=== PATIENT | female | born 1975 | race American Indian/Alaskan Native ===

== ENCOUNTER 2016-10-19 16:17 | Emergency (ER) | payer SELFPAY ==
--- NOTE | 2016-10-19 17:15 | Cat Scan Report ---
FINAL REPORT EXAM: CT HEAD/BRAIN WO CON HISTORY: fall TECHNIQUE: CT examination of the head without IV contrast PRIORS: None. FINDINGS: No acute air-fluid level visualized in the included air-filled sinuses. Bone windows demonstrate no acute fracture. The brain is without mass, mass effect, hemorrhage, or acute infarct. There is no extra-axial intracranial bleed, brain bleed, or midline shift. The ventricles and sulci are age-appropriate. IMPRESSION: No acute CVA, intracranial bleed, or brain mass
--- NOTE | 2016-10-19 18:33 | XRay Report ---
FINAL REPORT EXAM: XR HIP 2-3V LT HISTORY: fall/pain in left hip TECHNIQUE: One view of the pelvis 2 views of the left hip PRIORS: None. FINDINGS: No definite hip joint space narrowing. Small nonspecific ossicle is noted adjacent to the lateral margin of the left acetabulum. It is smoothly marginated, sclerotic, and appears chronic. This may be from degenerative change or old trauma. It may also be developmental variation. There is no definite radiographic evidence of acute fracture or dislocation. No evidence of osseous lesion. IMPRESSION: No definite radiographic evidence of acute skeletal pathology in the pelvis and left hip
--- NOTE | 2016-10-19 18:35 | XRay Report ---
FINAL REPORT EXAM: XR RIBS UNILAT 2V LT HISTORY: fall/pain in left posterior lower ribs TECHNIQUE: Frontal and oblique views of the left ribs PRIORS: None. FINDINGS: There is no evidence of acute displaced rib fracture. The ribs are partly obscured by superimposed anatomy. There is no pneumothorax, pulmonary consolidation to suggest contusion, or pleural effusion in the visualized chest. IMPRESSION: No acute skeletal pathology
[2016-10-19] MEDS ORDERED: FLEXERIL PO ONE (20:10)
[2016-10-19] MEDS ORDERED: TORADOL IM ONE (20:10)
[2016-10-19] MEDS ORDERED: TORADOL ONE (20:20)
--- NOTE | 2016-10-19 20:21 | Emergency Department Report ---
HPI - General Chief Complaint: Fall Time Seen by Provider: 10/19/16 19:53 - HPI HPI: 41 year-old female with medical history of present ed complaining of falling down 20 steps earlier today. patient states she has a history of bed knee and her right knee give out so she fell and hit her left hip back of the head and left rib. patient denies any loss of consciousness after incident. patient was able to get up after the incident. She states her left hip and rib hurts since the incident. Denies dizziness, blurry vision, headache ED Past Medical Hx - Past Medical History Hx Headaches / Migraines: Yes Additional medical history: Endometriosis, lower back pain - Surgical History Additional Surgical History: Laproscopic surgery for endometriosis, tubal ligation, left ring finger - Social History Smoking Status: Current Every Day Smoker Substance Use Type: Alcohol - Medications Home Medications: Home Medications Medication Instructions Recorded Confirmed Last Taken Type Ibuprofen [Motrin 800 MG tab] 800 mg PO Q8H #21 tablet 06/21/14 Unknown Rx HYDROcodone/APAP 10-325 [[place] 1 each PO Q6HR PRN #20 tablet 12/27/14 Unknown Rx 10/325] Acetaminophen/Codeine [Tylenol 1 tab PO Q6H PRN #16 tab 03/30/15 Unknown Rx /Codeine # 3 tab] Gentamicin 0.3% Ophth Soln 2 drops OP Q4H #1 bottle 03/30/15 Unknown Rx Sulfamethoxazole/Trimethoprim 1 each PO BID #20 tablet 03/30/15 Unknown Rx [Bactrim DS TAB] Cyclobenzaprine [Flexeril 10 MG 10 mg PO QHS PRN #24 tablet 10/19/16 Unknown Rx TAB] Ibuprofen [Motrin 800 MG tab] 800 mg PO Q8HR PRN #30 tablet 10/19/16 Unknown Rx ED Review of Systems ROS: Stated complaint: FALL/LT SIDE AND BACK PAIN Other details as noted in HPI Constitutional: denies: chills, fever Eyes: denies: eye pain, eye discharge, vision change ENT: denies: ear pain, throat pain Respiratory: denies: cough, shortness of breath, wheezing Cardiovascular: denies: chest pain, palpitations Endocrine: no symptoms reported Gastrointestinal: denies: abdominal pain, nausea, diarrhea Genitourinary: denies: urgency, dysuria, discharge Musculoskeletal: denies: back pain, joint swelling, arthralgia Skin: denies: rash, lesions Neurological: denies: headache, weakness, paresthesias Psychiatric: denies: anxiety, depression Hematological/Lymphatic: denies: easy bleeding, easy bruising Physical Exam - Physical Exam Vital Signs: Vital Signs 10/19/16 16:28 Temperature 98.9 F Pulse Rate 109 H Respiratory 18 Rate Blood Pressure 140/97 O2 Sat by Pulse 98 Oximetry Physical Exam: GENERAL: Alert and oriented x3, no apparent distress, Normal Gait, atraumatic. HEAD: Head is normocephalic and a-traumatic. EYES: Extra ocular muscles are intact. Pupils are equal, round, and reactive to light and accommodation. EARS: symetrical, atraumatic, non tender, ear canal clear and moderate cerumen, tympanic membrance non inflamed. gross auditory nml bilaterally. NOSE: Nose symetrical, Nontender,Nares appeared normal. MOUTH:Mouth is well hydrated and without lesions. Tonsils nonerythematous or swollen, Uvula midline, Tongue not elevated. Mucous membranes are moist. Posterior pharynx clear, no exudate or lesions. Patent airways. NECK: Supple. Non edematous, No carotid bruits. No lymphadenopathy or thyromegaly. No C-spine tenderness LUNGS: Symetrical with respiration, No wheezing, no rales or crackles, CTAB. HEART: S1, S2 present, regular rate and rhythm without murmur, no rubs, no gallops. Non tender to palpation ABDOMEN: No organomegaly was noted,Positive bowel sounds, soft, and non- distended. . Nontender to palpation on all Quadrants, NO CVA tenderness. BACK: Full range of motion, no spinal tenderness, nontender to palpation. EXTREMITIES/MUSCULOSKELETAL: No cyanosis, clubbing, rash, lesions or edema. Full ROM bilaterally. UE/LE Pulses 2+ bilaterally. LE and UE 5+ strength bilaterally, straight leg raise negative bilaterally NEUROLOGIC: The patient is cooperative with no focal neurologic deficits. Cranial nerves II through XII are grossly intact. Normal speech. PSYCHIATRIC: Mood is congruent with affect, denies suicidal or homicidal ideations. SKIN: Warm and dry, No lesions, No ulceration or induration present. ED Course Vital Signs 10/19/16 16:28 Temperature 98.9 F Pulse Rate 109 H Respiratory 18 Rate Blood Pressure 140/97 O2 Sat by Pulse 98 Oximetry ED Medical Decision Making - Radiology Data Radiology results: report reviewed, image reviewed FINAL REPORT EXAM: CT HEAD/BRAIN WO CON HISTORY: fall TECHNIQUE: CT examination of the head without IV contrast PRIORS: None. FINDINGS: No acute air-fluid level visualized in the included air-filled sinuses. Bone windows demonstrate no acute fracture. The brain is without mass, mass effect, hemorrhage, or acute infarct. There is no extra-axial intracranial bleed, brain bleed, or midline shift. The ventricles and sulci are age-appropriate. IMPRESSION: No acute CVA, intracranial bleed, or brain mass FINAL REPORT EXAM: XR HIP 2-3V LT HISTORY: fall/pain in left hip TECHNIQUE: One view of the pelvis 2 views of the left hip PRIORS: None. FINDINGS: No definite hip joint space narrowing. Small nonspecific ossicle is noted adjacent to the lateral margin of the left acetabulum. It is smoothly marginated, sclerotic, and appears chronic. This may be from degenerative change or old trauma. It may also be developmental variation. There is no definite radiographic evidence of acute fracture or dislocation. No evidence of osseous lesion. IMPRESSION: No definite radiographic evidence of acute skeletal pathology in the pelvis and left hip Transcribed By: CAMERON Dictated By: KILO MONSALVE MD Electronically Authenticated By: KILO MONSALVE MD Signed Date/Time: 10/19/16 183 - Medical Decision Making 41-year-old female presents to ED with myalgia is status post fall down some steps ED course: Patient received Toradol and Flexeril in ED. CT scan of the head, hip x-ray and rib detail x-ray shows no abnormal findings Discussed this with the patient. Vital signs are normal patient is in no acute distress Discussed with patient follow-up with primary care physician. Discussed the patient and take medications as prescribed. Patient has no neurological deficit. Patient is alert and oriented 3 and understands all instructions given. Discussed drowsiness effect of Flexeril makes her drowsy and not to operate machinery while taking flexeril Critical care attestation.: If time is entered above; I have spent that time in minutes in the direct care of this critically ill patient, excluding procedure time. ED Disposition Clinical Impression: Fall (on) (from) other stairs and steps, initial encounter, Myalgia Disposition: DC-01 TO HOME OR SELFCARE Is pt being admited?: No Does the pt Need Aspirin: No Condition: Stable Instructions: Trigger Point Pain (ED), Musculoskeletal Pain (ED), Heat Pack Application (ED) Prescriptions: Cyclobenzaprine [Flexeril 10 MG TAB] 10 mg PO QHS PRN #24 tablet PRN Reason: Muscle Spasm Ibuprofen [Motrin 800 MG tab] 800 mg PO Q8HR PRN #30 tablet PRN Reason: Pain Referrals: PRIMARY CARE, [Primary Care Provider] - 3-5 Days [facility] [Outside] - 3-5 Days [facility] [Outside] - 3-5 Days [facility] [Outside] - 3-5 Days Forms: Accompanied Note, Work/School Release Form(ED) Time of Disposition: 20:36
[2016-10-19 20:56] VITALS: BP 158/96
== END 2016-10-19 20:56 | disposition home or self-care (01) ==
LOC: ED 16:17
DX: M79.1 Myalgia (principal); M25.552 Pain in left hip; R07.9 Chest pain, unspecified; G43.909 Migraine, unspecified, not intractable, without status migrainosus; N80.9 Endometriosis, unspecified; F17.200 Nicotine dependence, unspecified, uncomplicated; Z98.51 Tubal ligation status; W10.9XXA Fall (on) (from) unspecified stairs and steps, initial encounter; Y93.9 Activity, unspecified; Y99.9 Unspecified external cause status; Y92.89 Other specified places as the place of occurrence of the external cause
CPT/HCPCS: 70450; 71100; 73502; 96372; 99284; J1885

== ENCOUNTER 2016-10-21 20:56 | Emergency (ER) | payer SELFPAY | END 2016-10-21 21:15 | disposition left against medical advice (07) | LOC: ED 20:56 | DX: R07.81 Pleurodynia (principal); Z53.21 Procedure and treatment not carried out due to patient leaving prior to being seen by health care provider ==

== ENCOUNTER 2017-03-22 07:15 | Emergency (ER) | payer OTHER ==
[2017-03-22 08:03] LABS: Basophils % (Auto) 0.6 % (0.0-1.8); Eosinophils # (Auto) 0.1 K/mm3 (0.0-0.4); Eosinophils % (Auto) 0.8 % (0.0-4.3); Hematocrit 44.4 % (30.3-42.9); Lymphocytes # (Auto) 2.4 K/mm3 (1.2-5.4); Lymphocytes % (Auto) 33.8 % (13.4-35.0); Mean Corpuscular HGB Conc 34 % (30-34); Mean Corpuscular Hemoglobin 31 pg (28-32); Mean Corpuscular Volume 93 fl (79-97); Monocytes # (Auto) 0.4 K/mm3 (0.0-0.8); Monocytes % (Auto) 5.5 % (0.0-7.3); Platelet Count 332 K/mm3 (140-440); Red Blood Count 4.79 M/mm3 (3.65-5.03); Red Cell Distribution Width 13.6 % (13.2-15.2)
[2017-03-22 08:07] LABS: BUN/Creatinine Ratio 16; Blood Urea Nitrogen 14 mg/dL (7-17); Calcium 9.2 mg/dL (8.4-10.2); Hemolysis Index 32
[2017-03-22] MEDS ORDERED: LOPRESSOR IV ONE (09:57)
--- NOTE | 2017-03-22 10:10 | Emergency Department Report ---
HPI - General Chief Complaint: High BP Time Seen by Provider: 03/22/17 09:25 - HPI HPI: This is a 42-year-old female presents to the emergency department with multiple complaints. She has been getting evaluated for tendinitis and each time she goes to the orthopedist she appears to have increasing blood pressures. Today she came directly from the orthopedist office secondary to hypertension. Over the past few weeks, the patient complains of "feeling funny" which includes some numbness and/or tingling to the left side of the face, left side of the tongue. She has a tightness to the left side of her neck and shoulder. She also has some midsternal chest tightness. She denies any shortness of breath but the chest tightness does worsen with respirations. She denies any nausea, vomiting, fever, back pain or diaphoresis. She denies any slurred speech or vision change but does have a headache. She does have a history of migraines. She has not taken anything for any of her symptoms prior to presentation. She is a tobacco smoker and says that one pack lasts about one week. She denies any illicit drug use. She does have a family history that includes a brother passing away from a heart attack at 47 years of age. No recent travel or sick contacts at home. ED Past Medical Hx - Past Medical History Previous Medical History?: Yes Hx Headaches / Migraines: Yes Additional medical history: Endometriosis, lower back pain - Surgical History Past Surgical History?: Yes Additional Surgical History: Laproscopic surgery for endometriosis, tubal ligation, left ring finger - Social History Smoking Status: Light Tobacco Smoker - Medications Home Medications: Home Medications Medication Instructions Recorded Confirmed Last Taken Type Ibuprofen [Motrin 800 MG tab] 800 mg PO Q8H #21 tablet 06/21/14 Unknown Rx HYDROcodone/APAP 10-325 [[place] 1 each PO Q6HR PRN #20 tablet 12/27/14 Unknown Rx 10/325] Acetaminophen/Codeine [Tylenol 1 tab PO Q6H PRN #16 tab 03/30/15 Unknown Rx /Codeine # 3 tab] Gentamicin 0.3% Ophth Soln 2 drops OP Q4H #1 bottle 03/30/15 Unknown Rx Sulfamethoxazole/Trimethoprim 1 each PO BID #20 tablet 03/30/15 Unknown Rx [Bactrim DS TAB] Cyclobenzaprine [Flexeril 10 MG 10 mg PO QHS PRN #24 tablet 10/19/16 Unknown Rx TAB] Ibuprofen [Motrin 800 MG tab] 800 mg PO Q8HR PRN #30 tablet 10/19/16 Unknown Rx amLODIPine [Norvasc] 10 mg PO DAILY #15 tab 03/22/17 Unknown Rx ED Review of Systems ROS: Stated complaint: HTN Other details as noted in HPI Comment: All other systems reviewed and negative Constitutional: denies: chills, fever Eyes: denies: eye pain, eye discharge, vision change ENT: denies: ear pain, throat pain Respiratory: denies: cough, shortness of breath, wheezing Cardiovascular: chest pain, palpitations. denies: edema Gastrointestinal: denies: abdominal pain, nausea, diarrhea Genitourinary: denies: urgency, dysuria, discharge Musculoskeletal: denies: back pain, joint swelling Skin: denies: rash, lesions Neurological: headache, numbness, paresthesias Physical Exam - Physical Exam Vital Signs: Vital Signs 03/22/17 07:23 Temperature 97.6 F Pulse Rate 85 Respiratory 18 Rate Blood Pressure 160/107 O2 Sat by Pulse 100 Oximetry Physical Exam: GENERAL: The patient is well-developed well-nourished. HENT: Normocephalic. Atraumatic. Patient has moist mucous membranes. EYES: Medial and lateral extraocular motions are intact. When the patient tries to follow vertically, the right eye go superiorly and the left eye goes laterally. If the patient is focusing too close to her face, she has trouble with all extraocular motion. Pupils equal reactive to light bilaterally. No nystagmus. NECK: Supple. Trachea is midline. CHEST/LUNGS: Clear to auscultation. There is no respiratory distress noted. HEART/CARDIOVASCULAR: Regular. There is no tachycardia. There is no murmur. ABDOMEN: Abdomen is soft, nontender. Patient has normal bowel sounds. There is no abdominal distention. SKIN: There is no rash. There is no edema. There is no diaphoresis. NEURO: The patient is awake, alert, and oriented. The patient is cooperative. She has normal speech. No pronator drift. No dysmetria. She has subjective decreased sensation to the left side of the face, left arm and left leg. MUSCULOSKELETAL: There is no tenderness or deformity. There is no limitation range of motion. There is no evidence of acute injury. ED Course Vital Signs 03/22/17 07:23 Temperature 97.6 F Pulse Rate 85 Respiratory 18 Rate Blood Pressure 160/107 O2 Sat by Pulse 100 Oximetry ED Medical Decision Making - Lab Data Result diagrams: 03/22/17 07:32 03/22/17 07:32 - EKG Data -: EKG Interpreted by Me EKG shows normal: sinus rhythm, axis, intervals, QRS complexes, ST-T waves ( early repolarization) Rate: normal - EKG Data When compared to previous EKG there are: previous EKG unavailable Interpretation: other (sinus rhythm, normal axis, early repolarization) - Radiology Data Radiology results: report reviewed, image reviewed interpreted by me: Chest x-ray does not show any acute process. There are no pleural effusions, obvious pneumonia and there is no pneumothorax. CT HEAD WITHOUT CONTRAST: HISTORY: Headache, left-sided numbness. TECHNIQUE: Sequential 2.5mm CT images. COMPARISON: 10/19/16. FINDINGS: Cerebral Parenchyma: Within normal limits. Cerebellum: Within normal limits. Brainstem: Within normal limits. Ventricles: Normal. Sella: Normal. Extra-axial spaces: Normal. Basal Cisterns: Normal. Intracranial Hemorrhage: None. Midline Shift: None. Calvarium: Normal. Sinuses: Normal. Mastoid Air Cells: Normal. Visualized Orbits: Normal. IMPRESSION: Cranial CT scan within normal limits. Transcribed By: TTR Dictated By: KWAKU HCO JR, MD Electronically Authenticated By: KWAKU CHO JR, MD Signed Date/Time: 03/22/17 1050 - Medical Decision Making Patient presents with hypertensive issues, some chest tightness and some left- sided facial and body numbness/paresthesias. She also appears to have some asymmetrical extraocular motion. CT of the head does not show any bleed, shift , mass or any acute process. Chest x-ray does not show any acute process. EKG does not show any ST elevation [place], ischemia or dysrhythmia. Patient does have a few risk factors for coronary artery disease including hypertension, tobacco abuse and family history. For these reasons, as well as the sensory deficits, the patient will be admitted to the hospital for further evaluation and treatment. - Differential Diagnosis [place], PE, CVA, TIA, malignancy, MS Critical Care Time: No Critical care attestation.: If time is entered above; I have spent that time in minutes in the direct care of this critically ill patient, excluding procedure time. ED Disposition Clinical Impression: Left sided numbness Hypertension Qualifiers: Hypertension type: essential hypertension Qualified Code(s): I10 - Essential ( primary) hypertension Chest pain Qualifiers: Chest pain type: unspecified Qualified Code(s): R07.9 - Chest pain, unspecified Headache Qualifiers: Headache type: unspecified Headache chronicity pattern: unspecified pattern Intractability: not intractable Qualified Code(s): R51 - Headache Disposition: OP ADMIT IP TO THIS HOSP Is pt being admited?: Yes Condition: Stable Instructions: Hypertension (ED), Chest Pain (ED) Prescriptions: amLODIPine [Norvasc] 10 mg PO DAILY #15 tab Referrals: PRIMARY CARE, [Primary Care Provider] - 3-5 Days Time of Disposition: 14:34
[2017-03-22 10:22] LABS: INR 1.03 (0.87-1.13)
[2017-03-22 10:23] LABS: Partial Thromboplastin Time 26.2 Sec. (24.2-36.6)
[2017-03-22 10:36] LABS: Alanine Aminotransferase 13 units/L (7-56); Albumin 3.8 g/dL (3.9-5)
--- NOTE | 2017-03-22 10:40 | XRay Report ---
ROUTINE CHEST, TWO VIEWS: HISTORY: chest pain. The trachea, heart, mediastinal contour, lung javed and bony thorax are unremarkable. IMPRESSION: Unremarkable chest x-ray.
[2017-03-22 10:42] LABS: Bilirubin,Direct < 0.2 mg/dL (0-0.2)
--- NOTE | 2017-03-22 10:56 | Cat Scan Report ---
CT HEAD WITHOUT CONTRAST: HISTORY: Headache, left-sided numbness. TECHNIQUE: Sequential 2.5mm CT images. COMPARISON: 10/19/16. FINDINGS: Cerebral Parenchyma: Within normal limits. Cerebellum: Within normal limits. Brainstem: Within normal limits. Ventricles: Normal. Sella: Normal. Extra-axial spaces: Normal. Basal Cisterns: Normal. Intracranial Hemorrhage: None. Midline Shift: None. Calvarium: Normal. Sinuses: Normal. Mastoid Air Cells: Normal. Visualized Orbits: Normal. IMPRESSION: Cranial CT scan within normal limits.
--- NOTE | 2017-03-22 12:08 | History and Physical Report ---
History of Present Illness Chief complaint: My blood pressure is high History of present illness: 42 YO Female with Nicotine Dependence,Migraine LOMBARDO, Endometriosis presents to ED for evaluation. Pt states that she was told by her orthopedist that she appears to have increasing blood pressures and is suspected to have hypertension. Pt acknowledeges tightness in her chest, but Pt denies previous diagnosis of hypertension, or prior prescription for antihypertensive medication. Pt denies fever, chills, CP, palpitatons, LOMBARDO, NVD, Syncope, productive cough, or recent ill contacts. Pt seen and evaluated in ED and underwent serial cardiac enzymes, ekg, d dimer, which were unremarkable and not indicative of acute ischamia, CT head was negative for acute findings. Pt medically optimized and back to usual state of health. Pt prescribed antihypertensive medication and instructed to f/u pcp with 5 days with blood pressure log 3xdaily. Past History Past Medical History: other (migraine headache, endometriosis) Past Surgical History: Other (tubal ligation) Social history: , smoking Family history: CAD Medications and Allergies Allergies Allergy/AdvReac Type Severity Reaction Status Date / Time aspirin Allergy Nausea Verified 10/21/16 21:00 dial soap Allergy Hives Uncoded 09/25/14 12:12 Home Medications Medication Instructions Recorded Confirmed Last Taken Type Ibuprofen [Motrin 800 MG tab] 800 mg PO Q8H #21 tablet 06/21/14 Unknown Rx HYDROcodone/APAP 10-325 [[place] 1 each PO Q6HR PRN #20 tablet 12/27/14 Unknown Rx 10/325] Acetaminophen/Codeine [Tylenol 1 tab PO Q6H PRN #16 tab 03/30/15 Unknown Rx /Codeine # 3 tab] Gentamicin 0.3% Ophth Soln 2 drops OP Q4H #1 bottle 03/30/15 Unknown Rx Sulfamethoxazole/Trimethoprim 1 each PO BID #20 tablet 03/30/15 Unknown Rx [Bactrim DS TAB] Cyclobenzaprine [Flexeril 10 MG 10 mg PO QHS PRN #24 tablet 10/19/16 Unknown Rx TAB] Ibuprofen [Motrin 800 MG tab] 800 mg PO Q8HR PRN #30 tablet 10/19/16 Unknown Rx Review of Systems Constitutional: no weight loss, no weight gain, no fever, no chills Ears, nose, mouth and throat: no ear pain, no ear discharge, no tinnitis, no decreased hearing Breasts: no change in shape, no swelling, no mass Cardiovascular: no chest pain, no orthopnea, no palpitations, no rapid/ irregular heart beat Respiratory: no cough, no cough with sputum, no excessive sputum, no hemoptysis Gastrointestinal: no nausea, no vomiting, no diarrhea, no constipation Genitourinary Female: no pelvic pain, no flank pain, no menorrhagia, no dysuria Rectal: no pain, no incontinence, no bleeding Musculoskeletal: no neck stiffness, no neck pain, no shooting arm pain, no arm numbness/tingling, no low back pain Integumentary: no rash, no pruritis, no redness, no sores, no wounds Neurological: no paralysis, no weakness, no parathesias, no numbness, no tingling Psychiatric: no memory loss, no change in sleep habits, no sleep disturbances, no insomnia, no hypersomnia Endocrine: no cold intolerance, no heat intolerance, no polyphagia, no excessive thirst, no polydipsia Hematologic/Lymphatic: no easy bruising, no easy bleeding, no lymphadenopathy, no lymphedema Allergic/Immunologic: no urticaria, no allergic rhinitis, no wheezing, no persistent infections, no anaphylaxis, no angioedema Exam - Constitutional Vitals: Temp Pulse Resp BP Pulse Ox 97.6 F 72 14 152/106 100 03/22/17 07:23 03/22/17 11:30 03/22/17 11:30 03/22/17 11:30 03/22/17 11:30 General appearance: Present: no acute distress, well-nourished - EENT Eyes: Present: PERRL ENT: hearing intact, clear oral mucosa - Neck Neck: Present: supple, normal ROM - Respiratory Respiratory effort: normal Respiratory: bilateral: CTA - Cardiovascular Heart Sounds: Present: S1 & S2. Absent: rub, click - Extremities Extremities: pulses symmetrical, No edema Peripheral Pulses: within normal limits - Abdominal General gastrointestinal: Present: soft, non-tender, non-distended, normal bowel sounds Female genitourinary: Present: normal - Integumentary Integumentary: Present: clear, warm, dry - Musculoskeletal Musculoskeletal: gait normal, strength equal bilaterally - Psychiatric Psychiatric: appropriate mood/affect, intact judgment & insight - Neurologic Neurologic: CNII-XII intact, moves all extremities Results - Labs CBC & Chem 7: 03/22/17 07:32 03/22/17 07:32 Labs: Abnormal lab results 03/22/17 03/22/17 03/22/17 Range/Units 07:32 07:32 10:01 Hgb 15.0 H (10.1-14.3) gm/dl Hct 44.4 H (30.3-42.9) % Glucose 107 H (65-100) mg/dL Albumin 3.8 L (3.9-5) g/dL Assessment and Plan - Patient Problems (1) Hypertension Current Visit: Yes Status: Acute Qualifiers: Hypertension type: essential hypertension Qualified Code(s): I10 - Essential (primary) hypertension Plan to address problem: Prescription written for amlodipine. Pt instructed to f/u pcp as directed with BP log 3x daily.
[2017-03-22] MEDS ORDERED: NORVASC PO ONE (12:34)
[2017-03-22 13:14] LABS: Bilirubin,Urine NEG (Negative); Blood,Urine LG (Negative); Color,Urine Yellow (Yellow); Mucus,Urine FEW /HPF; Nitrite,Urine NEG (Negative); Protein,Urine <15 mg/dL mg/dL (Negative); Urobilinogen,Urine < 2.0 mg/dL (<2.0)
[2017-03-22 13:22] LABS: Amphetamine Screen,Urine PRESUMPTIVE NEGATIVE; Benzodiazepines Screen,Urine PRESUMPTIVE NEGATIVE; Cannabinoid Screen,Urine PRESUMPTIVE NEGATIVE; Cocaine Screen,Urine PRESUMPTIVE NEGATIVE; Methadone Screen,Urine PRESUMPTIVE NEGATIVE; Opiate Screen,Urine PRESUMPTIVE NEGATIVE
[2017-03-22 14:21] VITALS: BP 152/77
== END 2017-03-22 15:40 | disposition admitted as inpatient to this hospital (09) ==
LOC: ED 07:15
DX: I10 Essential (primary) hypertension (principal); R20.0 Anesthesia of skin; G43.909 Migraine, unspecified, not intractable, without status migrainosus; F17.200 Nicotine dependence, unspecified, uncomplicated; Z88.6 Allergy status to analgesic agent; Z91.09 Other allergy status, other than to drugs and biological substances; Z79.899 Other long term (current) drug therapy
CPT/HCPCS: 36415; 70450; 71046; 80048; 80074; 80307; 81001; 84484; 84703; 85025; 85379; 85610; 85730; 93005; 93010; 96374

== ENCOUNTER 2017-10-14 05:40 | Emergency (ER) | payer SELFPAY ==
--- NOTE | 2017-10-14 07:52 | XRay Report ---
LEFT KNEE, 3 views: History: Pain. The bony architecture is intact without evidence of fracture or dislocation. A small joint effusion extends to the suprapatellar bursa on the lateral image. IMPRESSION: Small joint effusion. No osseous abnormality appreciated.
--- NOTE | 2017-10-14 08:09 | Emergency Department Report ---
ED Lower Extremity HPI - General Chief Complaint: Extremity Injury, Lower Time Seen by Provider: 10/14/17 08:08 Source: patient Mode of arrival: Ambulatory Limitations: No Limitations - History of Present Illness Initial Comments: This is 42-year-old female who reports that she got up this morning around 2:30 and injured her knee heard a pop and reports swollen. She came to the emergency room with crutches. She said the same thing happened 6 months ago. She has blood pressure of 165/107 and she has not taken her blood pressure medication today. She says she is on amlodipine. Pain to10/10 and achy. It is worse with movement and better with rest. No medication taken prior to coming to the emergency room MD Complaint: knee injury -: This morning Injury: Knee: Left (pain and swelling after injury) Type of Injury: eversion Place: home Severity: severe Severity scale (0 -10): 10 Worsens With: movement, palpation Context: walking Associated Symptoms: snap/pop sensation, swelling, able to partially bear weight. denies: numbness, tingling Treatments Prior to Arrival: other (crutches) - Related Data Previous Rx's Medication Instructions Recorded Last Taken Type Ibuprofen [Motrin 800 MG tab] 800 mg PO Q8H #21 tablet 06/21/14 Unknown Rx HYDROcodone/APAP 10-325 [[place] 1 each PO Q6HR PRN #20 tablet 12/27/14 Unknown Rx 10/325] Acetaminophen/Codeine [Tylenol 1 tab PO Q6H PRN #16 tab 03/30/15 Unknown Rx /Codeine # 3 tab] Gentamicin 0.3% Ophth Soln 2 drops OP Q4H #1 bottle 03/30/15 Unknown Rx Sulfamethoxazole/Trimethoprim 1 each PO BID #20 tablet 03/30/15 Unknown Rx [Bactrim DS TAB] Cyclobenzaprine [Flexeril 10 MG 10 mg PO QHS PRN #24 tablet 10/19/16 Unknown Rx TAB] Ibuprofen [Motrin 800 MG tab] 800 mg PO Q8HR PRN #30 tablet 10/19/16 Unknown Rx amLODIPine [Norvasc] 10 mg PO DAILY #15 tab 03/22/17 Unknown Rx Ibuprofen [Motrin] 600 mg PO Q8H PRN #12 tablet 10/14/17 Unknown Rx Allergies Allergy/AdvReac Type Severity Reaction Status Date / Time aspirin Allergy Nausea Verified 10/14/17 07:13 dial soap Allergy Hives Uncoded 09/25/14 12:12 ED Review of Systems ROS: Stated complaint: Other details as noted in HPI Constitutional: denies: chills, fever Eyes: denies: eye pain, vision change Respiratory: denies: cough, shortness of breath, SOB with exertion, wheezing Cardiovascular: denies: chest pain, palpitations, edema, syncope Gastrointestinal: denies: abdominal pain, nausea, vomiting, diarrhea Genitourinary: denies: discharge Musculoskeletal: joint swelling, arthralgia. denies: back pain, myalgia Skin: denies: rash, lesions Neurological: abnormal gait. denies: headache, weakness, numbness, paresthesias , vertigo ED Past Medical Hx - Past Medical History Previous Medical History?: Yes Hx Hypertension: Yes Hx Headaches / Migraines: Yes Additional medical history: Endometriosis, lower back pain - Surgical History Past Surgical History?: Yes Additional Surgical History: Laproscopic surgery for endometriosis, tubal ligation, left ring finger - Family History Family history: hypertension - Social History Smoking Status: Current Every Day Smoker Substance Use Type: Alcohol - Medications Home Medications: Home Medications Medication Instructions Recorded Confirmed Last Taken Type Ibuprofen [Motrin 800 MG tab] 800 mg PO Q8H #21 tablet 06/21/14 Unknown Rx HYDROcodone/APAP 10-325 [[place] 1 each PO Q6HR PRN #20 tablet 12/27/14 Unknown Rx 10/325] Acetaminophen/Codeine [Tylenol 1 tab PO Q6H PRN #16 tab 03/30/15 Unknown Rx /Codeine # 3 tab] Gentamicin 0.3% Ophth Soln 2 drops OP Q4H #1 bottle 03/30/15 Unknown Rx Sulfamethoxazole/Trimethoprim 1 each PO BID #20 tablet 03/30/15 Unknown Rx [Bactrim DS TAB] Cyclobenzaprine [Flexeril 10 MG 10 mg PO QHS PRN #24 tablet 10/19/16 Unknown Rx TAB] Ibuprofen [Motrin 800 MG tab] 800 mg PO Q8HR PRN #30 tablet 10/19/16 Unknown Rx amLODIPine [Norvasc] 10 mg PO DAILY #15 tab 03/22/17 Unknown Rx Ibuprofen [Motrin] 600 mg PO Q8H PRN #12 tablet 10/14/17 Unknown Rx ED Physical Exam - General Limitations: No Limitations General appearance: alert, in no apparent distress - Head Head exam: Present: atraumatic, normocephalic, normal inspection - Eye Eye exam: Present: normal appearance, PERRL, EOMI Pupils: Present: normal accommodation - ENT ENT exam: Present: normal exam, normal orophraynx, mucous membranes moist - Neck Neck exam: Present: normal inspection, full ROM. Absent: tenderness, lymphadenopathy - Respiratory Respiratory exam: Present: normal lung sounds bilaterally. Absent: respiratory distress, chest wall tenderness - Cardiovascular Cardiovascular Exam: Present: regular rate, normal rhythm, normal heart sounds. Absent: systolic murmur, diastolic murmur - GI/Abdominal GI/Abdominal exam: Present: soft, normal bowel sounds. Absent: tenderness, organomegaly - Extremities Exam Extremities exam: Present: normal inspection, full ROM, normal capillary refill , other (my extremity physical exam except patient ambulates with crutches). Absent: tenderness, pedal edema, joint swelling, calf tenderness - Expanded Lower Extremity Exam Left Hip exam: Present: normal inspection, full ROM, pelvic stability. Absent: tenderness, swelling, abrasion, laceration, ecchymosis, deformity, crepidus, dislocation, erythema, external rotation, internal rotation, shortening Upper Leg exam: Present: normal inspection, full ROM. Absent: tenderness, swelling, abrasion, laceration, ecchymosis, deformity, crepidus, dislocation, erythema Knee exam: Present: normal inspection, full ROM, tenderness (anterior knee), swelling (anterior knee), effusion (anterior knee), full knee extension (full extension but pain with flexion and extension). Absent: abrasion, laceration, ecchymosis, deformity, crepidus, dislocation, erythema, pain w/ pronation/ supination, posterior draw sign, pain/laxity with valgus, pain/laxity with varus Lower Leg exam: Present: normal inspection, full ROM. Absent: tenderness, swelling, abrasion, laceration, ecchymosis, deformity, crepidus, dislocation, erythema, palpable cord, Shoshana's sign Ankle exam: Present: normal inspection, full ROM. Absent: tenderness, swelling , abrasion, laceration, ecchymosis, deformity, crepidus, dislocation, erythema, anterior draw sign Foot/Toe exam: Present: normal inspection, full ROM. Absent: tenderness, swelling, abrasion, laceration, ecchymosis, deformity, crepidus, dislocation, erythema, amputation, puncture wound, foreign body, calcaneal tenderness, tenderness at base of 5th metatarsal, nail avulsion, subungual hematoma Neuro vascular tendon exam: Absent: no vascular compromise, pulse deficit, abnormal cap refill, motor deficit, sensory deficit, tendon deficit, extremity cold to touch, pallor, abnormal 2-point discrimination, decreased fine/light touch, foot drop, peroneal nerve deficit, significant pain with passive ROM of distal joint Gait: Positive: observed and limited by pain - Back Exam Back exam: Present: normal inspection, full ROM, other (4). Absent: tenderness , CVA tenderness (R), CVA tenderness (L), muscle spasm, paraspinal tenderness, vertebral tenderness, rash noted - Neurological Exam Neurological exam: Present: alert, oriented X3, abnormal gait (left knee swelling with pain), reflexes normal. Absent: motor sensory deficit - Psychiatric Psychiatric exam: Present: normal affect, normal mood - Skin Skin exam: Present: warm, dry, intact, normal color. Absent: rash ED Course Vital Signs 10/14/17 07:14 Temperature 99.1 F Pulse Rate 85 Respiratory 18 Rate Blood Pressure 165/107 O2 Sat by Pulse 100 Oximetry Vital Signs 10/14/17 07:14 Temperature 99.1 F Pulse Rate 85 Respiratory 18 Rate Blood Pressure 165/107 O2 Sat by Pulse 100 Oximetry Vital Signs 10/14/17 10/14/17 07:14 09:18 Temperature 99.1 F Pulse Rate 85 Respiratory 18 Rate Blood Pressure 165/107 Blood Pressure 148/82 [Left] O2 Sat by Pulse 100 Oximetry - Reevaluation(s) Reevaluation #1: 10/14/17 09:17 Patient given [place] 5/325 2 tablets by mouth for left knee pain and swelling. - Orthopedic Splinting/Casting Injury #1 Side: left Upper Extremity Immobilizer: Jitendra wrap Lower Extremity Injury Location: knee Additional Comments: Patient has her own crutches. ED Lower Extremity MDM - Radiology Data Radiology results: report reviewed X-ray of left knee 3 views dictated by radiologist and report reviewed by myself. Please see details below Patient: JEANNIE SMITH MR#: [id number] : 1975 Acct:[id number] Age/Sex: 42 / F ADM Date: 10/14/17 Loc: ED Attending Dr: Ordering Physician: MATT RAPHAEL MD Date of Service: 10/14/17 Procedure(s): XR knee 3V LT Accession Number(s): [id number] cc: MATT RAPHAEL MD Fluoro Time In Minutes: LEFT KNEE, 3 views: History: Pain. The bony architecture is intact without evidence of fracture or dislocation. A small joint effusion extends to the suprapatellar bursa on the lateral image. IMPRESSION: Small joint effusion. No osseous abnormality appreciated. Transcribed By: TTR Dictated By: KWAKU CHO JR, MD Electronically Authenticated By: KWAKU CHO JR, MD Signed Date/Time: 10/14/17750 DD/ 0 TD/TT: 10/14/17750 - Medical Decision Making This is a 42-year-old female here report that she got up this morning around 2: 30 and injured her left knee report dysuria polyp and knee swollen. She is here to be evaluated She was seen and evaluated in her physical exam is normal except she has left anterior knee swelling, tenderness to palpate, pain with active and passive range of motion and some joint effusion without any crepitus to left knee. Patient has no neurovascular compromise and she has +2 pulses to all extremities. X-ray of the left knee 3 views dictated by radiologist and reported reviewed by myself. X-ray shows no bony abnormality but small knee effusion. I discussed diagnosis, x-ray results, medication and treatment plan the patient and she was understanding. Patient was given [place] 5/325 mg 2 tablets when necessary emergency room for pain with positive relief. Her blood pressure has stabilized and she reports her pain is uncertain 03/29. Patient discharged home to follow up with orthopedic doctor in 2-3 days and she voiced understanding. Rice therapy explained and she was given a prescription for Motrin - Differential Diagnosis FXVS dislocation, sprain, musculoskeletal pain Critical care attestation.: If time is entered above; I have spent that time in minutes in the direct care of this critically ill patient, excluding procedure time. ED Disposition Clinical Impression: Effusion, left knee Knee pain, left Qualifiers: Chronicity: acute Qualified Code(s): M25.562 - Pain in left knee Sprain, knee Qualifiers: Encounter type: initial encounter Involved ligament of knee: unspecified ligament Laterality: left Qualified Code(s): S83.92XA - Sprain of unspecified site of left knee, initial encounter Disposition: TO HOME OR SELFCARE Is pt being admited?: No Does the pt Need Aspirin: No Condition: Stable Instructions: Knee Effusion (ED), Arthralgia (ED), Knee Pain (ED), Knee Sprain (ED), Knee Exercises (GEN), RICE Therapy (ED) Additional Instructions: See discharge instruction in Rice therapy Follow up with orthopedic doctor as instructed in 2-3 days Follow up Primary care physician in 2-3 days Take Motrin for pain but please do not take this medication on an empty stomach as it causes stomach upset and irritation to some alkaline and If his symptoms worsen, return to the emergency room Referrals: PRIMARY CARE, [Primary Care Provider] - 2-3 Days ANUSHKA COREA MD [Staff Physician] - 2-3 Days Forms: Work/School Release Form(ED)
[2017-10-14] MEDS ORDERED: NORCO 5/325 PO ONE (08:57)
[2017-10-14] MEDS ORDERED: MOTRIN PO ONE (08:57)
[2017-10-14 09:19] VITALS: BP 148/82
== END 2017-10-14 09:37 | disposition home or self-care (01) ==
LOC: ED 05:40
DX: S83.92XA Sprain of unspecified site of left knee, initial encounter (principal); I10 Essential (primary) hypertension; G43.909 Migraine, unspecified, not intractable, without status migrainosus; F17.200 Nicotine dependence, unspecified, uncomplicated; Z98.51 Tubal ligation status; Z79.899 Other long term (current) drug therapy; Z88.6 Allergy status to analgesic agent; Z91.048 Other nonmedicinal substance allergy status; X58.XXXA Exposure to other specified factors, initial encounter; Y93.89 Activity, other specified; Y99.8 Other external cause status; Y92.89 Other specified places as the place of occurrence of the external cause

== ENCOUNTER 2017-10-17 19:22 | Emergency (ER) | payer SELFPAY ==
[2017-10-18] MEDS ORDERED: DECADRON IM ONE (01:51)
[2017-10-18] MEDS ORDERED: TORADOL IM ONE (01:51)
--- NOTE | 2017-10-18 01:55 | Emergency Department Report ---
ED Extremity Problem HPI - General Chief complaint: Extremity Injury, Lower Stated complaint: LT KNEE PAIN Time Seen by Provider: 10/18/17 01:50 Source: patient, old records reviewed Mode of arrival: Ambulatory Limitations: No Limitations - History of Present Illness Initial comments: 42-year-old -[place] female presents to the emergency room for left knee pain. Patient has injured her knee 3 times in the past. Patient was recently seen here on Friday for the same issue. Patient has been taking Motrin 600 mg. Patient states now the pain radiates from her knee down to her leg. Patient states she has been using the RICE method and her leg is getting worse. Patient reports that she made an attempt to make a follow-up appointment but she did not get paid until Friday and they were needing to have a sliding scale deposit. Patient reports that she was supposed to go back to work today but states she is unable to secondary to her knee pain and swelling. It was noted that patient's blood pressure was elevated in triage and patient states that she did not take her lisinopril 10 mg. She is also requesting a refill on her lisinopril. MD Complaint: extremity pain, extremity swelling -: week(s) (2) Location: left, knee History of Same: Yes -: Yes arthralgia Radiation: proximal Severity scale (0 -10): 10 Quality: aching, other (tingling) Consistency: constant Worsens with: weight bearing, walking - Related Data Previous Rx's Medication Instructions Recorded Last Taken Type Ibuprofen [Motrin 800 MG tab] 800 mg PO Q8H #21 tablet 06/21/14 Unknown Rx HYDROcodone/APAP 10-325 [[place] 1 each PO Q6HR PRN #20 tablet 12/27/14 Unknown Rx 10/325] Acetaminophen/Codeine [Tylenol 1 tab PO Q6H PRN #16 tab 03/30/15 Unknown Rx /Codeine # 3 tab] Gentamicin 0.3% Ophth Soln 2 drops OP Q4H #1 bottle 03/30/15 Unknown Rx Sulfamethoxazole/Trimethoprim 1 each PO BID #20 tablet 03/30/15 Unknown Rx [Bactrim DS TAB] Cyclobenzaprine [Flexeril 10 MG 10 mg PO QHS PRN #24 tablet 10/19/16 Unknown Rx TAB] Ibuprofen [Motrin 800 MG tab] 800 mg PO Q8HR PRN #30 tablet 10/19/16 Unknown Rx amLODIPine [Norvasc] 10 mg PO DAILY #15 tab 03/22/17 Unknown Rx Ibuprofen [Motrin] 600 mg PO Q8H PRN #12 tablet 10/14/17 Unknown Rx Lisinopril [Zestril TAB] 10 mg PO QDAY #30 tablet 10/18/17 Unknown Rx Allergies Allergy/AdvReac Type Severity Reaction Status Date / Time aspirin Allergy Nausea Verified 10/14/17 07:13 dial soap Allergy Hives Uncoded 09/25/14 12:12 ED Review of Systems ROS: Stated complaint: LT KNEE PAIN Other details as noted in HPI Comment: All other systems reviewed and negative Musculoskeletal: joint swelling, arthralgia ED Past Medical Hx - Past Medical History Previous Medical History?: Yes Hx Hypertension: Yes Hx Headaches / Migraines: Yes Additional medical history: Endometriosis, lower back pain - Surgical History Past Surgical History?: Yes Additional Surgical History: Laproscopic surgery for endometriosis, tubal ligation, left ring finger - Social History Smoking Status: Current Every Day Smoker Substance Use Type: Alcohol - Medications Home Medications: Home Medications Medication Instructions Recorded Confirmed Last Taken Type Ibuprofen [Motrin 800 MG tab] 800 mg PO Q8H #21 tablet 06/21/14 Unknown Rx HYDROcodone/APAP 10-325 [[place] 1 each PO Q6HR PRN #20 tablet 12/27/14 Unknown Rx 10/325] Acetaminophen/Codeine [Tylenol 1 tab PO Q6H PRN #16 tab 03/30/15 Unknown Rx /Codeine # 3 tab] Gentamicin 0.3% Ophth Soln 2 drops OP Q4H #1 bottle 03/30/15 Unknown Rx Sulfamethoxazole/Trimethoprim 1 each PO BID #20 tablet 03/30/15 Unknown Rx [Bactrim DS TAB] Cyclobenzaprine [Flexeril 10 MG 10 mg PO QHS PRN #24 tablet 10/19/16 Unknown Rx TAB] Ibuprofen [Motrin 800 MG tab] 800 mg PO Q8HR PRN #30 tablet 10/19/16 Unknown Rx amLODIPine [Norvasc] 10 mg PO DAILY #15 tab 03/22/17 Unknown Rx Ibuprofen [Motrin] 600 mg PO Q8H PRN #12 tablet 10/14/17 Unknown Rx Lisinopril [Zestril TAB] 10 mg PO QDAY #30 tablet 10/18/17 Unknown Rx ED Physical Exam - General Limitations: No Limitations General appearance: alert, in no apparent distress - ENT ENT exam: Present: mucous membranes moist - Respiratory Respiratory exam: Present: normal lung sounds bilaterally. Absent: respiratory distress - Cardiovascular Cardiovascular Exam: Present: regular rate, normal rhythm. Absent: systolic murmur, diastolic murmur, rubs, gallop - Expanded Lower Extremity Exam Left Knee exam: Present: tenderness (medial aspect), swelling, effusion, full knee extension. Absent: deformity, erythema Foot/Toe exam: Present: normal inspection, full ROM, swelling. Absent: tenderness Neuro vascular tendon exam: Present: no vascular compromise Gait: Positive: antalgic - Neurological Exam Neurological exam: Present: alert, oriented X3 - Psychiatric Psychiatric exam: Present: normal affect, normal mood ED Course Vital Signs 10/17/17 10/18/17 19:53 02:13 Temperature 99.2 F Pulse Rate 101 H 92 H Respiratory 17 18 Rate Blood Pressure 152/102 Blood Pressure 158/88 [Left] O2 Sat by Pulse 99 99 Oximetry Critical care attestation.: If time is entered above; I have spent that time in minutes in the direct care of this critically ill patient, excluding procedure time. ED Disposition Clinical Impression: Effusion, left knee, HTN, goal below 130/80 Knee pain, left Qualifiers: Chronicity: chronic Qualified Code(s): M25.562 - Pain in left knee Disposition: DC-01 TO HOME OR SELFCARE Is pt being admited?: No Does the pt Need Aspirin: No Condition: Stable Instructions: Hypertension (ED) Additional Instructions: Please take your blood pressure medicine every day. Please continue with pain medication as needed. It is very important for you to follow-up with an orthopedic provider. Referrals are listed below. Please continue with knee brace. You can start with warm compresses if that helps. If not continue with ice elevation and compression. Prescriptions: Lisinopril [Zestril TAB] 10 mg PO QDAY #30 tablet Referrals: PRIMARY CAREMD [Primary Care Provider] - 3-5 Days ANUSHKA COREA MD [Staff Physician] - 3-5 Days GERALDINE SUBRAMANIAN MD [Staff Physician] - 3-5 Days [facility] [Provider Group] - 3-5 Days Forms: Work/School Release Form(ED)
[2017-10-18 02:13] VITALS: BP 158/88
== END 2017-10-18 02:13 | disposition home or self-care (01) ==
LOC: ED 19:22
DX: M25.462 Effusion, left knee (principal); I10 Essential (primary) hypertension; G43.909 Migraine, unspecified, not intractable, without status migrainosus; F17.200 Nicotine dependence, unspecified, uncomplicated; Z98.51 Tubal ligation status; Z88.6 Allergy status to analgesic agent; Z91.09 Other allergy status, other than to drugs and biological substances; Z79.899 Other long term (current) drug therapy
CPT/HCPCS: 96372; 99282; J1100; J1885

== ENCOUNTER 2018-03-05 00:10 | Emergency (ER) | payer OTHER ==
[2018-03-05] MEDS ORDERED: NACL 0.9% 1000 ML 1,000 ML IV ONE (00:28)
[2018-03-05] MEDS ORDERED: ZOFRAN ONE (00:33)
[2018-03-05] MEDS ORDERED: MORPHINE IV ONE (00:43)
--- NOTE | 2018-03-05 00:48 | Emergency Department Report ---
ED Abdominal Pain HPI - General Chief Complaint: Abdominal Pain Stated Complaint: RECTAL BLEEDING Time Seen by Provider: 03/05/18 00:21 Source: EMS Mode of arrival: Stretcher Limitations: No Limitations - History of Present Illness Initial Comments: Patient is 43 years old female with history of hypertension. Patient presented to the ER via EMS with a chief complaint of left lower quadrant abdominal pain associated with bloody diarrhea for the last 3 days. Patient also stated that she's been having some chills. Pain is also associated with nausea and vomiting. MD Complaint: abdominal pain -: days(s) Location: [facility] Radiation: none Migration to: no migration Severity: moderate - Related Data Home Medications Medication Instructions Recorded Confirmed Last Taken traMADol [Ultram 50 MG tab] 50 mg PO Q4HR PRN 11/27/17 11/27/17 11/26/17 Previous Rx's Medication Instructions Recorded Last Taken Type Acetaminophen [Acetaminophen TAB] 650 mg PO Q6H PRN #15 tablet 11/30/17 Unknown Rx Albuterol Sulfate [Proventil Hfa] 2 puff IH Q4H PRN #1 unit 11/30/17 Unknown Rx HYDROcodone/APAP 5-325 [[place] 1 each PO Q4HR PRN #6 tablet 11/30/17 Unknown Rx 5/325] Nicotine [Habitrol] 14 mg TD QDAY #14 patch 11/30/17 Unknown Rx amLODIPine [Norvasc] 10 mg PO DAILY #30 tab 11/30/17 Unknown Rx methylPREDNISolone [Medrol Dose 1 dose PO DAILY #1 pack 11/30/17 Unknown Rx Daryn] Allergies Allergy/AdvReac Type Severity Reaction Status Date / Time aspirin Allergy Nausea Verified 10/14/17 07:13 lisinopril Allergy Angioedema Verified 11/28/17 14:43 lorazepam Allergy Swelling Verified 03/05/18 00:27 dial soap Allergy Hives Uncoded 09/25/14 12:12 ED Review of Systems ROS: Stated complaint: RECTAL BLEEDING Other details as noted in HPI Comment: All other systems reviewed and negative Constitutional: chills. denies: fever Respiratory: denies: cough, orthopnea, shortness of breath, SOB with exertion, SOB at rest, wheezing Cardiovascular: denies: chest pain, palpitations, dyspnea on exertion Gastrointestinal: abdominal pain, nausea, vomiting, diarrhea, hematochezia. denies: constipation, hematemesis, melena Musculoskeletal: denies: back pain Neurological: denies: headache, weakness, numbness, paresthesias, confusion, abnormal gait ED Past Medical Hx - Past Medical History Hx Hypertension: Yes Hx Headaches / Migraines: Yes Additional medical history: Endometriosis, lower back pain, cervical cancer, - Surgical History Past Surgical History?: Yes Additional Surgical History: pt Laproscopic surgery for endometriosis, tubal ligation, left ring finger - Social History Smoking Status: Current Every Day Smoker Substance Use Type: Alcohol - Medications Home Medications: Home Medications Medication Instructions Recorded Confirmed Last Taken Type traMADol [Ultram 50 MG tab] 50 mg PO Q4HR PRN 11/27/17 11/27/17 11/26/17 History Acetaminophen [Acetaminophen TAB] 650 mg PO Q6H PRN #15 tablet 11/30/17 Unknown Rx Albuterol Sulfate [Proventil Hfa] 2 puff IH Q4H PRN #1 unit 11/30/17 Unknown Rx HYDROcodone/APAP 5-325 [[place] 1 each PO Q4HR PRN #6 tablet 11/30/17 Unknown Rx 5/325] Nicotine [Habitrol] 14 mg TD QDAY #14 patch 11/30/17 Unknown Rx amLODIPine [Norvasc] 10 mg PO DAILY #30 tab 11/30/17 Unknown Rx methylPREDNISolone [Medrol Dose 1 dose PO DAILY #1 pack 11/30/17 Unknown Rx Daryn] ED Physical Exam - General Limitations: No Limitations General appearance: alert, in no apparent distress - Head Head exam: Present: atraumatic, normocephalic, normal inspection - Eye Eye exam: Present: normal appearance, PERRL - ENT ENT exam: Present: mucous membranes dry - Neck Neck exam: Present: normal inspection, full ROM. Absent: tenderness, meningismus, lymphadenopathy, thyromegaly - Respiratory Respiratory exam: Present: normal lung sounds bilaterally. Absent: respiratory distress, wheezes, rales, rhonchi, stridor, chest wall tenderness, accessory muscle use, decreased breath sounds, prolonged expiratory - Cardiovascular Cardiovascular Exam: Present: regular rate, normal rhythm, normal heart sounds - GI/Abdominal GI/Abdominal exam: Present: soft, tenderness (left lower quadrant tenderness), normal bowel sounds. Absent: distended, guarding, rebound, rigid, organomegaly, mass, bruit, pulsatile mass, hernia - Extremities Exam Extremities exam: Present: normal inspection, full ROM, normal capillary refill. Absent: tenderness, pedal edema, calf tenderness - Back Exam Back exam: Present: normal inspection, full ROM. Absent: CVA tenderness (R), CVA tenderness (L), muscle spasm, paraspinal tenderness, vertebral tenderness, rash noted - Neurological Exam Neurological exam: Present: alert, oriented X3, CN II-XII intact, normal gait, reflexes normal - Skin Skin exam: Present: warm, intact, normal color ED Course Vital Signs 03/05/18 03/05/18 03/05/18 00:20 00:22 00:27 Temperature 98.5 F Pulse Rate 88 Respiratory 23 23 Rate Blood Pressure 164/107 Blood Pressure 164/107 [Left] O2 Sat by Pulse 98 98 Oximetry 03/05/18 03/05/18 03/05/18 00:31 00:45 01:01 Temperature Pulse Rate 112 H 92 H 89 Respiratory 24 14 15 Rate Blood Pressure 164/107 143/102 152/105 Blood Pressure [Left] O2 Sat by Pulse Oximetry 03/05/18 03/05/18 03/05/18 01:30 01:45 02:15 Temperature Pulse Rate 90 81 90 Respiratory 20 22 10 L Rate Blood Pressure 147/90 134/85 168/114 Blood Pressure [Left] O2 Sat by Pulse Oximetry 03/05/18 04:39 Temperature 98.5 F Pulse Rate 92 H Respiratory 14 Rate Blood Pressure Blood Pressure 152/108 [Left] O2 Sat by Pulse Oximetry ED Medical Decision Making - Lab Data Result diagrams: 03/05/18 00:38 03/05/18 00:38 - Radiology Data Radiology results: report reviewed Referring Physician: CHIP FRENCH Patient Name: JEANNIE SMITH Date of : 1975 Sex: Female Report Date: 2018-03-05 Report Status: [place] [address] Cat Scan Report Signed Patient: JEANNIE SMITH MR#: [id number] : 1975 Acct:[id number] Age/Sex: 43 / F ADM Date: 03/05/18 Loc: ED Attending Dr: Ordering Physician: CHIP FRENCH Date of Service: 03/05/18 Procedure(s): CT head/brain wo con Accession Number(s): [id number] cc: CHIP FRENCH FINAL REPORT EXAM: CT HEAD/BRAIN WO CON HISTORY: head injury TECHNIQUE: Routine axial imaging was obtained of the brain without IV contrast. Comparison is made to the study of 10/19/2016. FINDINGS: The ventricular system is appropriate in size and is symmetric. There is no evidence of acute stroke or hemorrhage. The visualized sinuses are clear. The mastoid air cells are well pneumatized. The calvarium appears intact. IMPRESSION: Within normal limits. Transcribed By: RB Dictated By: ANUSHKA NOVOA MD Electronically Authenticated By: ANUSHKA NOVOA MD Signed Date/Time: 03/05/18 0428 Referring Physician: CHIP FRENCH Patient Name: JEANNIE SMITH Date of : 1975 Sex: Female Report Date: 2018-03-05 Report Status: [place] [address] Cat Scan Report Signed Patient: JEANNIE SMITH MR#: [id number] : 1975 Acct:[id number] Age/Sex: 43 / F ADM Date: 03/05/18 Loc: ED Attending Dr: Ordering Physician: CHIP FRENCH Date of Service: 03/05/18 Procedure(s): CT abdomen pelvis w con Accession Number(s): [id number] cc: CHIP FRENCH FINAL REPORT EXAM: CT ABDOMEN PELVIS W CON HISTORY: abdominal pain, LLQ PAIN TECHNIQUE: Routine axial imaging was obtained of the abdomen and pelvis followi ng the intravenous injection of 100 cc of Omnipaque 300. Delayed imaging was obtained through the k idneys ureters and bladder. Sagittal and coronal reconstructions were reviewed. FINDINGS: The lung bases are clear. Pleural fluid is not seen. The liver, gallbladder, biliary tree, pancreas, spleen, and adrenal glands appear normal. The kidneys enhance normally. There is no evidence of hydronephrosis. The abdominal aorta is normal in caliber. The portal vein enhances normally. The bowel loops are normal in caliber and course. There is no evidence of free fluid or adenopathy. In the pelvis the uterus and bladder appear normal. There is a left adnexal cyst measuring 2.1 cm in diameter most likely ovarian in origin. The appendix is not seen with certainty. The skeletal structures do not show any acute changes. IMPRESSION: Left ovarian cyst measuring 2.1 cm in diameter. No evidence of free fluid. No acute process in the abdomen and pelvis otherwise. Transcribed By: RB Dictated By: ANUSHKA NOVOA MD Electronically Authenticated By: ANUSHKA NOVOA MD Signed Date/Time: 03/05/18436 DD/ 8 TD/TT: 03/05/18438 DD/ 9 TD/TT: 03/05/18429 Critical care attestation.: If time is entered above; I have spent that time in minutes in the direct care of this critically ill patient, excluding procedure time. ED Disposition Clinical Impression: Abdominal pain, Head injury, Ovarian cyst, Contusion of knee, left Disposition: - TO HOME OR SELFCARE Is pt being admited?: No Condition: Stable Instructions: Abdominal Pain (ED), Ovarian Cyst (ED), Minor Head Injury (ED) Referrals: JUVE VIRK MD [Primary Care Provider] - 3-5 Days
[2018-03-05 00:54] LABS: Basophils # (Auto) 0.1 K/mm3 (0.0-0.1); Basophils % (Auto) 1.5 % (0.0-1.8); Eosinophils # (Auto) 0.1 K/mm3 (0.0-0.4); Eosinophils % (Auto) 1.7 % (0.0-4.3); Hematocrit 42.6 % (30.3-42.9); Hemoglobin 14.4 gm/dl (10.1-14.3); Lymphocytes # (Auto) 3.2 K/mm3 (1.2-5.4); Lymphocytes % (Auto) 48.3 % (13.4-35.0); Mean Corpuscular HGB Conc 34 % (30-34); Mean Corpuscular Volume 91 fl (79-97); Monocytes # (Auto) 0.3 K/mm3 (0.0-0.8); Monocytes % (Auto) 5.1 % (0.0-7.3); Platelet Count 370 K/mm3 (140-440); Red Blood Count 4.66 M/mm3 (3.65-5.03); Red Cell Distribution Width 13.1 % (13.2-15.2)
[2018-03-05] MEDS ORDERED: ZOFRAN IV ONE (01:00)
[2018-03-05 01:18] LABS: Alanine Aminotransferase 18 units/L (7-56); Albumin 4.2 g/dL (3.9-5); BUN/Creatinine Ratio 11; Blood Urea Nitrogen 9 mg/dL (7-17); Calcium 8.2 mg/dL (8.4-10.2); Hemolysis Index 12
[2018-03-05 02:31] LABS: Bilirubin,Urine NEG (Negative); Blood,Urine MOD (Negative); Color,Urine Straw (Yellow); Protein,Urine <15 mg/dL mg/dL (Negative); Urobilinogen,Urine < 2.0 mg/dL (<2.0); WBC,Urine < 1.0 /HPF (0.0-6.0)
[2018-03-05] MEDS ORDERED: IBUPROFEN PO ONE (02:52)
--- NOTE | 2018-03-05 03:04 | XRay Report ---
FINAL REPORT EXAM: XR KNEE 3V LT HISTORY: KNEE INJURY TECHNIQUE: Three views of the left knee were submitted. FINDINGS: All 3 compartments are well maintained. There is no evidence of fracture or joint effusion. The soft tissues appear normal. IMPRESSION: Within normal limits.
--- NOTE | 2018-03-05 04:28 | Cat Scan Report ---
FINAL REPORT EXAM: CT HEAD/BRAIN WO CON HISTORY: head injury TECHNIQUE: Routine axial imaging was obtained of the brain without IV contrast. Comparison is made t o the study of 10/19/2016. FINDINGS: The ventricular system is appropriate in size and is symmetric. There is no evidence of acute stroke or hemorrhage. The visualized sinuses are clear. The mastoid air cells are well pneumatized. The calv arium appears intact. IMPRESSION: Within normal limits.
--- NOTE | 2018-03-05 04:37 | Cat Scan Report ---
FINAL REPORT EXAM: CT ABDOMEN PELVIS W CON HISTORY: abdominal pain, LLQ PAIN TECHNIQUE: Routine axial imaging was obtained of the abdomen and pelvis following the intravenous in jection of 100 cc of Omnipaque 300. Delayed imaging was obtained through the kidneys ureters and blad lesli. Sagittal and coronal reconstructions were reviewed. FINDINGS: The lung bases are clear. Pleural fluid is not seen. The liver, gallbladder, biliary tree, pancreas, spleen, and adrenal glands appear normal. The kidneys enhance normally. There is no evidence of hydronephrosis. The abdominal aorta is normal in caliber. The portal vein enhances normally. The bowel loops are normal in caliber and course. There is no evid ence of free fluid or adenopathy. In the pelvis the uterus and bladder appear normal. There is a left adnexal cyst measuring 2.1 cm in diameter most likely ovarian in origin. The appendix is not seen wi th certainty. The skeletal structures do not show any acute changes. IMPRESSION: Left ovarian cyst measuring 2.1 cm in diameter. No evidence of free fluid. No acute process in the abdomen and pelvis otherwise.
[2018-03-05 04:40] VITALS: BP 152/108
[2018-03-05] MEDS ORDERED: REGLAN IV ONE (04:44)
[2018-03-05] MEDS ORDERED: TORADOL IV ONE (04:44)
[2018-03-05] MEDS ORDERED: TORADOL ONE (04:47)
== END 2018-03-05 05:36 | disposition home or self-care (01) ==
LOC: ED 00:10
DX: S80.02XA Contusion of left knee, initial encounter (principal); S09.90XA Unspecified injury of head, initial encounter; N83.209 Unspecified ovarian cyst, unspecified side; I10 Essential (primary) hypertension; G43.909 Migraine, unspecified, not intractable, without status migrainosus; F17.200 Nicotine dependence, unspecified, uncomplicated; Z98.51 Tubal ligation status; Z88.8 Allergy status to other drugs, medicaments and biological substances; Z85.41 Personal history of malignant neoplasm of cervix uteri; Z88.6 Allergy status to analgesic agent; Z91.048 Other nonmedicinal substance allergy status; X58.XXXA Exposure to other specified factors, initial encounter; Y93.89 Activity, other specified; Y92.89 Other specified places as the place of occurrence of the external cause; Y99.8 Other external cause status
CPT/HCPCS: 36415; 70450; 73562; 74177; 80053; 81001; 84703; 85025; 93005; 93010; 96361; 96374; 96375; 99285; J1885; J2270; J2405; J2765; J7030; Q9967

== ENCOUNTER 2018-04-04 02:03 | Emergency (ER) | payer SELFPAY | END 2018-04-04 02:05 | disposition left against medical advice (07) | LOC: ED 02:03 ==

== ENCOUNTER 2018-10-10 09:49 | Emergency (ER) | payer SELFPAY ==
[2018-10-10] MEDS ORDERED: TORADOL IM ONE (11:55)
[2018-10-10] MEDS ORDERED: ROBAXIN PO ONE (11:55)
[2018-10-10] MEDS ORDERED: DELTASONE PO ONE (11:55)
--- NOTE | 2018-10-10 12:02 | Emergency Department Report ---
ED Back Pain/Injury HPI - General Chief Complaint: Back Pain/Injury Stated Complaint: LOWER RT BACK PAIN Time Seen by Provider: 10/10/18 10:32 Source: patient Limitations: No Limitations - History of Present Illness Initial Comments: no trauma MD Complaint: back pain -: Gradual, days(s) (approximately 7 days ) Similar Symptoms Previously: Yes Place: home Radiation: right leg (posterior leg) Severity: mild Severity scale (0 -10): 2 Quality: aching Consistency: intermittent Improves With: none Worsens With: none Associated Symptoms: denies: confusion, weakness, chest pain, numbness, difficulty walking, cough, difficulty urinating, diaphoresis, incontinence, fever/chills, constipation, headaches, abdominal pain, loss of appetite, malaise, nausea/vomiting, rash, seizure, shortness of breath, syncope - Related Data Home Medications Medication Instructions Recorded Confirmed Last Taken traMADol [Ultram 50 MG tab] 50 mg PO Q4HR PRN 11/27/17 11/27/17 11/26/17 Previous Rx's Medication Instructions Recorded Last Taken Type Acetaminophen [Acetaminophen TAB] 650 mg PO Q6H PRN #15 tablet 11/30/17 Unknown Rx Albuterol Sulfate [Proventil Hfa] 2 puff IH Q4H PRN #1 unit 11/30/17 Unknown Rx HYDROcodone/APAP 5-325 [[place] 1 each PO Q4HR PRN #6 tablet 11/30/17 Unknown Rx 5/325] Nicotine [Habitrol] 14 mg TD QDAY #14 patch 11/30/17 Unknown Rx amLODIPine [Norvasc] 10 mg PO DAILY #30 tab 11/30/17 Unknown Rx methylPREDNISolone [Medrol Dose 1 dose PO DAILY #1 pack 11/30/17 Unknown Rx Daryn] Ondansetron [Zofran Odt] 4 mg PO Q8HR PRN #14 tab.rapdis 03/05/18 Unknown Rx traMADol [Ultram 50 MG tab] 50 mg PO Q4HR PRN #14 tablet 03/05/18 Unknown Rx Ibuprofen [Motrin 600 MG tab] 600 mg PO Q6H PRN #24 tablet 10/10/18 Unknown Rx methOCARBAMOL [Robaxin TAB] 500 mg PO BID PRN #14 tab 10/10/18 Unknown Rx predniSONE [Deltasone] 20 mg PO QDAY #3 tab 10/10/18 Unknown Rx Allergies Allergy/AdvReac Type Severity Reaction Status Date / Time aspirin Allergy Nausea Verified 10/14/17 07:13 lisinopril Allergy Angioedema Verified 11/28/17 14:43 lorazepam Allergy Swelling Verified 03/05/18 00:27 dial soap Allergy Hives Uncoded 09/25/14 12:12 ED Review of Systems ROS: Stated complaint: LOWER RT BACK PAIN Other details as noted in HPI Other: GENERAL: No weight change, fatigue, fever, chills, or night sweats SKIN: No changes in skin or hair, no itching, no rashes, no jaundice HEAD: No trauma, headache, or visual changes EYES: No blurriness, tearing, itching, acute visual loss, conjunctival discoloration, or scleral icterus EARS: No hearing loss, tinnitus, vertigo, or earache NOSE: No rhinorrhea, stuffiness, sneezing, itching, or epistaxis MOUTH: No bleeding gums, hoarseness, sore throat, or swelling CARDIAC: No new murmur, chest pain, palpitations, dyspnea on exertion, orthopnea, PND, or edema RESPIRATORY: No shortness of breath, wheeze, cough, sputum production, he moptysis, pneumonia, asthma, bronchitis, or emphysema GI: No change in appetite, nausea, vomiting, dysphagia, diarrhea, constipation, hematemesis, melena, hematochezia, or abdominal pain URINARY: No frequency, urgency, polyuria, dysuria, hematuria, or incontinence MUSCULOSKELETAL: back pain. No muscle weakness, joint stiffness, redness, swelling NEUROLOGIC: No headache, loss of sensation, numbness, tingling, tremors, weakness, paralysis, seizures HEMATOLOGIC: No anemia, easy bruising, bleeding, petechiae, or purpura ENDOCRINE: No hot or cold intolerance, sweating, polyuria, polydipsia or, po lyphagia no thyroid problems PSYCHIATRIC: No change in mood, no anxiety, no depression ED Past Medical Hx - Past Medical History Previous Medical History?: Yes Hx Hypertension: Yes Hx Headaches / Migraines: Yes Additional medical history: Endometriosis, lower back pain, cervical cancer, - Surgical History Past Surgical History?: Yes Additional Surgical History: pt Laproscopic surgery for endometriosis, tubal ligation, left ring finger - Social History Smoking Status: Current Every Day Smoker Substance Use Type: Alcohol - Medications Home Medications: Home Medications Medication Instructions Recorded Confirmed Last Taken Type traMADol [Ultram 50 MG tab] 50 mg PO Q4HR PRN 11/27/17 11/27/17 11/26/17 History Acetaminophen [Acetaminophen TAB] 650 mg PO Q6H PRN #15 tablet 11/30/17 Unknown Rx Albuterol Sulfate [Proventil Hfa] 2 puff IH Q4H PRN #1 unit 11/30/17 Unknown Rx HYDROcodone/APAP 5-325 [[place] 1 each PO Q4HR PRN #6 tablet 11/30/17 Unknown Rx 5/325] Nicotine [Habitrol] 14 mg TD QDAY #14 patch 11/30/17 Unknown Rx amLODIPine [Norvasc] 10 mg PO DAILY #30 tab 11/30/17 Unknown Rx methylPREDNISolone [Medrol Dose 1 dose PO DAILY #1 pack 11/30/17 Unknown Rx Daryn] Ondansetron [Zofran Odt] 4 mg PO Q8HR PRN #14 tab.rapdis 03/05/18 Unknown Rx traMADol [Ultram 50 MG tab] 50 mg PO Q4HR PRN #14 tablet 03/05/18 Unknown Rx Ibuprofen [Motrin 600 MG tab] 600 mg PO Q6H PRN #24 tablet 10/10/18 Unknown Rx methOCARBAMOL [Robaxin TAB] 500 mg PO BID PRN #14 tab 10/10/18 Unknown Rx predniSONE [Deltasone] 20 mg PO QDAY #3 tab 10/10/18 Unknown Rx ED Physical Exam - General Limitations: No Limitations - Other Other exam information: GENERAL: Patient in no acute distress HEAD: Normocephalic, atraumatic EYES: PERRLA, EOM intact, no scleral icterus, no conjunctival hemorrhage, visual javed and acuity wnl NOSE: No tenderness, discharge, sinus tenderness MOUTH: No erythema, bleeding, exudate HEART: Regular rate and rhythm, no murmur, S1-S2 are auscultated, pulses are symmetric LUNGS: Bilateral breath sounds, No tachypnea, No retractions, No wheezing, rales, rhonchi MUSCULOSKELETAL: Decreased range of motion lower back due to stiffness. no redness, no swelling, no tenderness NEUROLOGIC: GCS 15, Alert and Oriented x3, Cranial nerves intact, normal sensation, normal strength, normal gait, no cerebellar deficit, NIHSS 0 PSYCHIATRIC: No homicidal or suicidal ideation, no anxiety, no depression, no hallucinations SKIN: Skin is warm and dry, no wounds, no rashes ED Course Vital Signs 10/10/18 09:54 Temperature 98.1 F Pulse Rate 82 Respiratory 20 Rate Blood Pressure 155/103 O2 Sat by Pulse 98 Oximetry ED Medical Decision Making - Medical Decision Making Patient comfortable. Plan discharge with outpatient follow up. Return if any worsening. Critical care attestation.: If time is entered above; I have spent that time in minutes in the direct care of this critically ill patient, excluding procedure time. ED Disposition Clinical Impression: Lumbosacral strain Qualifiers: Encounter type: initial encounter Qualified Code(s): S39.012A - Strain of muscle, fascia and tendon of lower back, initial encounter Disposition: TO HOME OR SELFCARE Is pt being admited?: No Condition: Stable Instructions: Acute Low Back Pain (ED) Prescriptions: predniSONE [Deltasone] 20 mg PO QDAY #3 tab Ibuprofen [Motrin 600 MG tab] 600 mg PO Q6H PRN #24 tablet PRN Reason: Pain methOCARBAMOL [Robaxin TAB] 500 mg PO BID PRN #14 tab PRN Reason: Spasms Referrals: JOSE ALFREDO LAMAR MD [Primary Care Provider] - 2-3 Days Time of Disposition: 12:04
[2018-10-10 12:23] VITALS: BP 150/92
== END 2018-10-10 12:23 | disposition home or self-care (01) ==
LOC: ED 09:49
DX: S39.012A Strain of muscle, fascia and tendon of lower back, initial encounter (principal); I10 Essential (primary) hypertension; G43.909 Migraine, unspecified, not intractable, without status migrainosus; F17.200 Nicotine dependence, unspecified, uncomplicated; Z79.899 Other long term (current) drug therapy; Z88.6 Allergy status to analgesic agent; Z91.048 Other nonmedicinal substance allergy status; Z88.8 Allergy status to other drugs, medicaments and biological substances; Z98.51 Tubal ligation status; X58.XXXA Exposure to other specified factors, initial encounter; Y93.89 Activity, other specified; Y92.89 Other specified places as the place of occurrence of the external cause; Y99.8 Other external cause status
CPT/HCPCS: 96372; 99282; J1885; J7512

== ENCOUNTER 2019-03-17 08:46 | Emergency (ER) | payer OTHER ==
--- NOTE | 2019-03-17 09:49 | XRay Report ---
CHEST 1 VIEW 03/17/2019 9:10 AM INDICATION / CLINICAL INFORMATION: Chest Pain. COMPARISON: Chest x-ray 03/05/2018 FINDINGS: SUPPORT DEVICES: None. HEART / MEDIASTINUM: No significant abnormality. LUNGS / PLEURA: No significant pulmonary or pleural abnormality. No pneumothorax. ADDITIONAL FINDINGS: No significant additional findings. IMPRESSION: 1. No acute findings. Signer Name: Edilberto Patrick MD Signed: 03/17/2019 9:45 AM Workstation Name: [employer]
[2019-03-17] MEDS ORDERED: amLODIPine 5 MG TAB PO ONE (10:19)
--- NOTE | 2019-03-17 10:30 | Emergency Department Report ---
<MIKE HERNÁNDEZ - Last Filed: 03/17/19 17:50> ED General Adult HPI - General Chief complaint: Chest Pain Stated complaint: CHEST TESSA, TINGLY LEFT AND LEFT Time Seen by Provider: 03/17/19 10:06 Source: patient Mode of arrival: Ambulatory Limitations: No Limitations - History of Present Illness Initial comments: Patient is a 44-year-old female presents emergency room with complaints of multiple complaints. Patient states that she has left-sided chest pain that began 3-4 days ago. She describes the pain as a pressure and an aching sensation. She states the pain radiates to her left shoulder and is causing left shoulder pain described as muscle aches. Sates that she also has tingling in her left fingers and left thigh. She states that she also has a pounding migraine headache. patient states that she is seeing floaters in her vision. She denies any unilateral weakness, vomiting, gait disturbance, speech disturban ce. States has a past medical history of endometriosis and hypertension. She states that she is was taking amlodipine 10 mg daily but has not taken it in 2 months. She states she has an allergy to lisinopril, aspirin, lorazepam. she is a current every day smoker and smokes one pack per week. She is a drinker and drinks 2-3 times a week. She denies any drug use. She denies ever having a stress test before. She states that she does have a history of migraines and has previously seen a neurologist and was taking a seizure medication for migraines but has not taken and multiple years. Severity scale (0 -10): 6 - Related Data Home Medications Medication Instructions Recorded Confirmed Last Taken traMADoL [Ultram 50 MG tab] 50 mg PO Q4HR PRN 11/27/17 11/27/17 11/26/17 Previous Rx's Medication Instructions Recorded Last Taken Type Acetaminophen [Acetaminophen TAB] 650 mg PO Q6H PRN #15 tablet 11/30/17 Unknown Rx Albuterol Sulfate [Proventil Hfa] 2 puff IH Q4H PRN #1 unit 11/30/17 Unknown Rx HYDROcodone/APAP 5-325 [[place] 1 each PO Q4HR PRN #6 tablet 11/30/17 Unknown Rx 5/325] Nicotine [Habitrol] 14 mg TD QDAY #14 patch 11/30/17 Unknown Rx methylPREDNISolone [Medrol Dose 1 dose PO DAILY #1 pack 11/30/17 Unknown Rx Daryn] Ondansetron [Zofran Odt] 4 mg PO Q8HR PRN #14 tab.rapdis 03/05/18 Unknown Rx traMADoL [Ultram 50 MG tab] 50 mg PO Q4HR PRN #14 tablet 03/05/18 Unknown Rx Ibuprofen [Motrin 600 MG tab] 600 mg PO Q6H PRN #24 tablet 10/10/18 Unknown Rx methOCARBAMOL [Robaxin TAB] 500 mg PO BID PRN #14 tab 10/10/18 Unknown Rx predniSONE [Deltasone] 20 mg PO QDAY #3 tab 10/10/18 Unknown Rx amLODIPine 10 mg PO DAILY #60 tab 03/17/19 Unknown Rx Allergies Allergy/AdvReac Type Severity Reaction Status Date / Time aspirin Allergy Nausea Verified 10/14/17 07:13 lisinopril Allergy Angioedema Verified 11/28/17 14:43 lorazepam Allergy Swelling Verified 03/05/18 00:27 dial soap Allergy Hives Uncoded 09/25/14 12:12 ED Review of Systems Comment: All other systems reviewed and negative ED Past Medical Hx - Past Medical History Previous Medical History?: Yes Hx Hypertension: Yes Hx Headaches / Migraines: Yes Additional medical history: Endometriosis, lower back pain, cervical cancer, - Surgical History Past Surgical History?: Yes Additional Surgical History: pt Laproscopic surgery for endometriosis, tubal ligation, left ring finger - Social History Smoking Status: Current Every Day Smoker Substance Use Type: Alcohol - Medications Home Medications: Home Medications Medication Instructions Recorded Confirmed Last Taken Type traMADoL [Ultram 50 MG tab] 50 mg PO Q4HR PRN 11/27/17 11/27/17 11/26/17 History Acetaminophen [Acetaminophen TAB] 650 mg PO Q6H PRN #15 tablet 11/30/17 Unknown Rx Albuterol Sulfate [Proventil Hfa] 2 puff IH Q4H PRN #1 unit 11/30/17 Unknown Rx HYDROcodone/APAP 5-325 [[place] 1 each PO Q4HR PRN #6 tablet 11/30/17 Unknown Rx 5/325] Nicotine [Habitrol] 14 mg TD QDAY #14 patch 11/30/17 Unknown Rx methylPREDNISolone [Medrol Dose 1 dose PO DAILY #1 pack 11/30/17 Unknown Rx Daryn] Ondansetron [Zofran Odt] 4 mg PO Q8HR PRN #14 tab.rapdis 03/05/18 Unknown Rx traMADoL [Ultram 50 MG tab] 50 mg PO Q4HR PRN #14 tablet 03/05/18 Unknown Rx Ibuprofen [Motrin 600 MG tab] 600 mg PO Q6H PRN #24 tablet 10/10/18 Unknown Rx methOCARBAMOL [Robaxin TAB] 500 mg PO BID PRN #14 tab 10/10/18 Unknown Rx predniSONE [Deltasone] 20 mg PO QDAY #3 tab 10/10/18 Unknown Rx amLODIPine 10 mg PO DAILY #60 tab 03/17/19 Unknown Rx ED Physical Exam - General Limitations: No Limitations General appearance: alert, in no apparent distress - Head Head exam: Present: atraumatic, normocephalic - Eye Eye exam: Present: normal appearance, PERRL, EOMI - ENT ENT exam: Present: mucous membranes moist - Respiratory Respiratory exam: Present: normal lung sounds bilaterally. Absent: respiratory distress, wheezes, rales, rhonchi, stridor, chest wall tenderness, accessory muscle use, decreased breath sounds, prolonged expiratory - Cardiovascular Cardiovascular Exam: Present: regular rate, normal rhythm, normal heart sounds. Absent: systolic murmur, diastolic murmur, rubs, gallop - GI/Abdominal GI/Abdominal exam: Present: soft, normal bowel sounds. Absent: distended, tenderness, guarding, rebound, rigid - Extremities Exam Extremities exam: Absent: pedal edema - Neurological Exam Neurological exam: Present: alert, oriented X3, CN II-XII intact, normal gait. Absent: motor sensory deficit - Psychiatric Psychiatric exam: Present: normal affect, normal mood - Skin Skin exam: Present: warm, dry, intact ED Medical Decision Making - Lab Data Result diagrams: 03/17/19 10:22 03/17/19 10:22 Lab Results 03/17/19 03/17/19 03/17/19 Range/Units 10:22 10:22 12:56 WBC 6.9 (4.5-11.0) K/mm3 RBC 4.56 (3.65-5.03) M/mm3 Hgb 14.0 (10.1-14.3) gm/dl Hct 41.7 (30.3-42.9) % MCV 92 (79-97) fl MCH 31 (28-32) pg MCHC 34 (30-34) % RDW 14.1 (13.2-15.2) % Plt Count 384 (140-440) K/mm3 Lymph % (Auto) 37.6 H (13.4-35.0) % [place] % (Auto) 8.1 H (0.0-7.3) % Eos % (Auto) 4.1 (0.0-4.3) % Baso % (Auto) 0.6 (0.0-1.8) % Lymph # 2.6 (1.2-5.4) K/mm3 [place] # 0.6 (0.0-0.8) K/mm3 Eos # 0.3 (0.0-0.4) K/mm3 Baso # 0.0 (0.0-0.1) K/mm3 Seg Neutrophils % 49.6 (40.0-70.0) % Seg Neutrophils # 3.4 (1.8-7.7) K/mm3 Sodium 138 (137-145) mmol/L Potassium 4.5 (3.6-5.0) mmol/L Chloride 105.0 (98-107) mmol/L Carbon Dioxide 20 L (22-30) mmol/L Anion Gap 18 mmol/L BUN 10 (7-17) mg/dL Creatinine 0.9 (0.7-1.2) mg/dL Estimated GFR > 60 ml/min BUN/Creatinine Ratio 11 % Glucose 111 H (65-100) mg/dL Calcium 9.3 (8.4-10.2) mg/dL Total Bilirubin < 0.20 (0.1-1.2) mg/dL Direct Bilirubin < 0.2 (0-0.2) mg/dL AST 17 (5-40) units/L ALT 14 (7-56) units/L Alkaline Phosphatase 72 (35-129) units/L Troponin T < 0.010 < 0.010 (0.00-0.029) ng/mL Total Protein 6.7 (6.3-8.2) g/dL Albumin 3.9 (3.9-5) g/dL Albumin/Globulin Ratio 1.4 % Urine Color (Yellow) Urine Turbidity (Clear) Urine pH (5.0-7.0) Ur Specific [place] (1.003-1.030) Urine Protein (Negative) mg/dL Urine Glucose (UA) (Negative) mg/dL Urine Ketones (Negative) mg/dL Urine Blood (Negative) Urine Nitrite (Negative) Urine Bilirubin (Negative) Urine Urobilinogen (<2.0) mg/dL Ur Leukocyte Esterase (Negative) Urine WBC (Auto) (0.0-6.0) /HPF Urine RBC (Auto) (0.0-6.0) /HPF U Epithel Cells (Auto) (0-13.0) /HPF Urine Bacteria (Auto) (Negative) /HPF Urine Mucus /HPF 03/17/19 Range/Units Unknown WBC (4.5-11.0) K/mm3 RBC (3.65-5.03) M/mm3 Hgb (10.1-14.3) gm/dl Hct (30.3-42.9) % MCV (79-97) fl MCH (28-32) pg MCHC (30-34) % RDW (13.2-15.2) % Plt Count (140-440) K/mm3 Lymph % (Auto) (13.4-35.0) % [place] % (Auto) (0.0-7.3) % Eos % (Auto) (0.0-4.3) % Baso % (Auto) (0.0-1.8) % Lymph # (1.2-5.4) K/mm3 [place] # (0.0-0.8) K/mm3 Eos # (0.0-0.4) K/mm3 Baso # (0.0-0.1) K/mm3 Seg Neutrophils % (40.0-70.0) % Seg Neutrophils # (1.8-7.7) K/mm3 Sodium (137-145) mmol/L Potassium (3.6-5.0) mmol/L Chloride (98-107) mmol/L Carbon Dioxide (22-30) mmol/L Anion Gap mmol/L BUN (7-17) mg/dL Creatinine (0.7-1.2) mg/dL Estimated GFR ml/min BUN/Creatinine Ratio % Glucose (65-100) mg/dL Calcium (8.4-10.2) mg/dL Total Bilirubin (0.1-1.2) mg/dL Direct Bilirubin (0-0.2) mg/dL AST (5-40) units/L ALT (7-56) units/L Alkaline Phosphatase (35-129) units/L Troponin T (0.00-0.029) ng/mL Total Protein (6.3-8.2) g/dL Albumin (3.9-5) g/dL Albumin/Globulin Ratio % Urine Color Yellow (Yellow) Urine Turbidity Slightly-cloudy (Clear) Urine pH 6.0 (5.0-7.0) Ur Specific [place] 1.018 (1.003-1.030) Urine Protein <15 mg/dl (Negative) mg/dL Urine Glucose (UA) Neg (Negative) mg/dL Urine Ketones Neg (Negative) mg/dL Urine Blood Mod (Negative) Urine Nitrite Neg (Negative) Urine Bilirubin Neg (Negative) Urine Urobilinogen < 2.0 (<2.0) mg/dL Ur Leukocyte Esterase Neg (Negative) Urine WBC (Auto) 5.0 (0.0-6.0) /HPF Urine RBC (Auto) 4.0 (0.0-6.0) /HPF U Epithel Cells (Auto) 8.0 (0-13.0) /HPF Urine Bacteria (Auto) 1+ (Negative) /HPF Urine Mucus Few /HPF - EKG Data EKG shows normal: sinus rhythm, axis, intervals, QRS complexes, ST-T waves Rate: normal - Radiology Data Radiology results: report reviewed CT head without contrast INDICATION : headache, floaters in vision, left sided tingling. TECHNIQUE: Axial imaging performed from the skull apex through the skull base without the use of contrast. All CT scans at this location are performed using CT dose reduction for ALARA by means of automated exposure control. COMPARISON: 03/05/2018. FINDINGS: Parenchyma: No acute intracranial hemorrhage or parenchymal abnormality. Ventricles: Ventricles are normal in size and appear symmetric. Soft tissues: Soft tissues including the orbits appear normal. Bones: No acute osseous abnormality. Sinuses: Sinuses and mastoid air cells are clear. IMPRESSION: No evidence of acute intracranial abnormality. If neurologic symptoms persist or additional evaluation is clinically indicated, consider MRI. Signer Name: Kunal Myrick MD Signed: 03/17/2019 11:37 AM Workstation Name: [id number] Transcribed By: CHANO Dictated By: KUNAL MYRICK MD Electronically Authenticated By: KUNAL MYRICK MD Signed Date/Time: 03/17/19 1137 DD/ 1134 TD/TT: CHEST 1 VIEW 03/17/2019 9:10 AM INDICATION / CLINICAL INFORMATION: Chest Pain. COMPARISON: Chest x-ray 03/05/2018 FINDINGS: SUPPORT DEVICES: None. HEART / MEDIASTINUM: No significant abnormality. LUNGS / PLEURA: No significant pulmonary or pleural abnormality. No pneumothorax. ADDITIONAL FINDINGS: No significant additional findings. IMPRESSION: 1. No acute findings. Signer Name: Edilberto Patrick MD Signed: 03/17/2019 9:45 AM Workstation Name: [id number] Transcribed By: TL Dictated By: Edilberto Patrick MD Electronically Authenticated By: Edilberto Patrick MD Signed Date/Time: 03/17/1945 DD/ 4 TD/TT: - Medical Decision Making Patient is a 44-year-old female presents emergency room with complaints of multiple complaints. Patient states that she has left-sided chest pain that began 3-4 days ago. She describes the pain as a pressure and an aching sensation. She states the pain radiates to her left shoulder and is causing left shoulder pain described as muscle aches. Sates that she also has tingling in her left fingers and left thigh. She states that she also has a pounding migraine headache. patient states that she is seeing floaters in her vision. She denies any unilateral weakness, vomiting, gait disturbance, speech disturbance. States has a past medical history of endometriosis and hypertension. She states that she is was taking amlodipine 10 mg daily but has not taken it in 2 months. She states she has an allergy to lisinopril, aspirin, lorazepam. she is a current every day smoker and smokes one pack per week. She is a drinker and drinks 2-3 times a week. She denies any drug use. She denies ever having a stress test before. She states that she does have a history of migraines and has previously seen a neurologist and was taking a seizure medication for migraines but has not taken and multiple years. initial vitals with elevated blood pressure which improved after her home medication of amlodipine. pt given medication for a migraine. she states that her headache improved after meds. labs are stable. troponin is negative x2. UA is normal. EKG is WNL. CXR with no acute process. CT head with no acute process. NIH score is 0. no neuro deficits on examination. Appears patient's symptoms are related to her elevated blood pressure which all improved after lowering her blood pressure with her home medication. spoke with Dr. Jim who agrees with treatment plan and discharge home. pt given a refill of her amlodipine. advised pt to please take medication as prescribed. Please take your blood pressure 3 times a day and keep a blood pressure log. Increase your water intake. Eat a low-sodium diet. Incorporate daily exercise. follow up with a custom applicator. Follow-up with a neurologist. Follow-up with a primary care doctor. Return to the emergency room immediately for any new or worsening symptoms. - Differential Diagnosis HTN urgency, ICH, CVA, AVM, migraine, cluster LOMBARDO, ACS, SAH, CHF, CM, PTX ED Disposition Disposition: DC-01 TO HOME OR SELFCARE Is pt being admited?: No Does the pt Need Aspirin: No Condition: Stable Instructions: Chest Pain (ED), Migraine Headache (ED), Paresthesia (ED), Hypertensive Crisis (ED) Additional Instructions: please take medication as prescribed. Please take your blood pressure 3 times a day and keep a blood pressure log. Increase your water intake. Eat a low- sodium diet. Incorporate daily exercise. follow up with a custom applicator. Follow-up with a neurologist. Follow-up with a primary care doctor. Return to the emergency room immediately for any new or worsening symptoms. Prescriptions: amLODIPine 10 mg PO DAILY #60 tab Referrals: DONNA RED MD [Staff Physician] - 2-3 Days SANAZ KABA MD [Staff Physician] - 2-3 Days PAMELLA CAMPBELL MD [Staff Physician] - 2-3 Days AUGIE KINCAID MD [Staff Physician] - 2-3 Days [facility] [Outside] - 2-3 Days [facility] [Outside] - 2-3 Days Forms: Accompanied Note Time of Disposition: 14:29 Print Language: TAJIK <MISTY JIM - Last Filed: 03/21/19 16:04> ED Review of Systems ROS: Stated complaint: CHEST TESSA, TINGLY LEFT AND LEFT Other details as noted in HPI ED Course Vital Signs 03/17/19 03/17/19 03/17/19 08:53 10:16 10:23 Temperature 98.4 F Pulse Rate 90 82 80 Respiratory 22 13 17 Rate Blood Pressure Blood Pressure 172/113 187/111 [Right] O2 Sat by Pulse 99 100 100 Oximetry 03/17/19 03/17/19 03/17/19 10:25 10:34 10:44 Temperature Pulse Rate 82 80 Respiratory 17 Rate Blood Pressure 187/111 187/111 Blood Pressure [Right] O2 Sat by Pulse 100 100 Oximetry 03/17/19 03/17/19 03/17/19 10:45 11:00 11:18 Temperature Pulse Rate 77 73 77 Respiratory 19 20 23 Rate Blood Pressure 147/89 147/89 154/96 Blood Pressure [Right] O2 Sat by Pulse 98 99 Oximetry 03/17/19 03/17/19 03/17/19 11:30 11:46 12:00 Temperature Pulse Rate 67 77 77 Respiratory 16 19 20 Rate Blood Pressure 169/105 175/100 150/102 Blood Pressure [Right] O2 Sat by Pulse 99 100 98 Oximetry 03/17/19 03/17/19 03/17/19 12:23 12:30 12:45 Temperature Pulse Rate 74 78 76 Respiratory 17 23 15 Rate Blood Pressure 169/105 169/105 144/96 Blood Pressure [Right] O2 Sat by Pulse 98 99 100 Oximetry 03/17/19 03/17/19 03/17/19 13:00 13:15 13:30 Temperature Pulse Rate 79 72 73 Respiratory 16 17 16 Rate Blood Pressure 139/86 125/81 136/86 Blood Pressure [Right] O2 Sat by Pulse 100 100 100 Oximetry 03/17/19 03/17/19 03/17/19 13:45 14:00 14:15 Temperature Pulse Rate 77 98 H 84 Respiratory 13 22 21 Rate Blood Pressure 124/87 139/90 124/74 Blood Pressure [Right] O2 Sat by Pulse 96 99 97 Oximetry 03/17/19 14:30 Temperature Pulse Rate 83 Respiratory 17 Rate Blood Pressure 133/84 Blood Pressure [Right] O2 Sat by Pulse 96 Oximetry ED Medical Decision Making - Lab Data Result diagrams: 03/17/19 10:22 03/17/19 10:22 - Medical Decision Making Not contemporaneously reviewed with physician. Critical care attestation.: If time is entered above; I have spent that time in minutes in the direct care of this critically ill patient, excluding procedure time.
[2019-03-17] MEDS ORDERED: METOCLOPRAMIDE 10 MG TAB PO ONE (10:46)
[2019-03-17] MEDS ORDERED: diphenhydrAMINE 25 MG CAP PO ONE (10:46)
[2019-03-17 10:49] LABS: Basophils % (Auto) 0.6 % (0.0-1.8); Eosinophils # (Auto) 0.3 K/mm3 (0.0-0.4); Eosinophils % (Auto) 4.1 % (0.0-4.3); Hematocrit 41.7 % (30.3-42.9); Lymphocytes # (Auto) 2.6 K/mm3 (1.2-5.4); Lymphocytes % (Auto) 37.6 % (13.4-35.0); Mean Corpuscular HGB Conc 34 % (30-34); Mean Corpuscular Volume 92 fl (79-97); Monocytes # (Auto) 0.6 K/mm3 (0.0-0.8); Monocytes % (Auto) 8.1 % (0.0-7.3); Platelet Count 384 K/mm3 (140-440); Red Blood Count 4.56 M/mm3 (3.65-5.03); Red Cell Distribution Width 14.1 % (13.2-15.2)
[2019-03-17 10:55] LABS: Bacteria,Urine 1+ /HPF (Negative); Bilirubin,Urine NEG (Negative); Blood,Urine MOD (Negative); Color,Urine Yellow (Yellow); Mucus,Urine FEW /HPF; Protein,Urine <15 mg/dL mg/dL (Negative); Urobilinogen,Urine < 2.0 mg/dL (<2.0)
[2019-03-17 11:12] LABS: Alanine Aminotransferase 14 units/L (7-56); Albumin 3.9 g/dL (3.9-5); BUN/Creatinine Ratio 11; Bilirubin,Direct < 0.2 mg/dL (0-0.2); Blood Urea Nitrogen 10 mg/dL (7-17); Calcium 9.3 mg/dL (8.4-10.2); Hemolysis Index 12
--- NOTE | 2019-03-17 11:41 | Cat Scan Report ---
CT head without contrast INDICATION : headache, floaters in vision, left sided tingling. TECHNIQUE: Axial imaging performed from the skull apex through the skull base without the use of con trast. All CT scans at this location are performed using CT dose reduction for ALARA by means of aut omated exposure control. COMPARISON: 03/05/2018. FINDINGS: Parenchyma: No acute intracranial hemorrhage or parenchymal abnormality. Ventricles: Ventricles are normal in size and appear symmetric. Soft tissues: Soft tissues including the orbits appear normal. Bones: No acute osseous abnormality. Sinuses: Sinuses and mastoid air cells are clear. IMPRESSION: No evidence of acute intracranial abnormality. If neurologic symptoms persist or additional evaluatio n is clinically indicated, consider MRI. Signer Name: Kunal Montemayor MD Signed: 03/17/2019 11:37 AM Workstation Name: [id number]
[2019-03-17] MEDS ORDERED: SUMAtriptan SUCCINATE 25 MG TAB PO ONE (14:51)
[2019-03-17 15:26] VITALS: BP 133/84
== END 2019-03-17 15:39 | disposition home or self-care (01) ==
LOC: ED 08:46
DX: I16.0 Hypertensive urgency (principal); R20.2 Paresthesia of skin; R07.89 Other chest pain; G43.909 Migraine, unspecified, not intractable, without status migrainosus; F17.200 Nicotine dependence, unspecified, uncomplicated; Z98.51 Tubal ligation status; Z98.890 Other specified postprocedural states; Z79.1 Long term (current) use of non-steroidal anti-inflammatories (NSAID); Z79.899 Other long term (current) drug therapy; Z88.1 Allergy status to other antibiotic agents; Z88.8 Allergy status to other drugs, medicaments and biological substances
CPT/HCPCS: 36415; 70450; 71045; 80048; 80076; 81001; 84484; 85025; 93005; 93010

== ENCOUNTER 2020-12-13 12:16 | Emergency (ER) | payer OTHER ==
[2020-12-13] MEDS ORDERED: ACETAMINOPHEN 325 MG TAB PO ONE (12:40)
[2020-12-13 12:44] VITALS: BP 175/105
--- NOTE | 2020-12-13 12:45 | Emergency Department Report ---
- General Chief Complaint: Upper Respiratory Infection Stated Complaint: REACTION FROM FLU SHOT Time Seen by Provider: 12/13/20 12:36 Source: patient Mode of arrival: Ambulatory Limitations: No Limitations - History of Present Illness Initial Comments: The patient was evaluated in the emergency department for symptoms described in the history of present illness. He/she was evaluated in the context of the global COVID-19 pandemic, which necessitated consideration that the patient might be at risk for infection with the virus that causes COVID-19. Institutional protocols and algorithms that pertain to the evaluation of patients at risk for COVID-19 are in a state of rapid change based on information released by regulatory bodies including the CDC and federal and state organizations. These policies and algorithms were followed during the patient's care in the emergency department. Please note that these policies, procedures and recommendations changed on a rapid basis. 45-year-old -[place] female presents to the emergency room stating she has been having some achiness feeling cold headache that is located in the frontal area and chest tightness with nasal congestion after having her flu vaccination on Friday. Patient reports she has a history of hypertension. She had a stroke in 2008. She states that she is fully vaccinated for Covid and this is the first time getting a flu vaccination. Patient states that she has vomited with head spinning. She last took ibuprofen approximately 630 this morning. She states that she had a fever at work of 101 in the center home. Complaint: fever, rhinorrhea, nasal congestion, other (Feeling like the room is spinning) Onset/Timin -: days(s) Severity scale (0 -10): 7 Quality: other (Tightness in the chest) Improves With: nothing Worsens With: deep breaths, changing head position Context: other (Flu injection on Friday) Associated Symptoms: chills, headache (Frontal), rhinorrhea, nasal congestion, sore throat, nausea, vomiting Treatments Prior to Arrival: Ibuprofen (6:30 AM) - Related Data Home Medications Medication Instructions Recorded Confirmed Last Taken traMADoL [Ultram 50 MG tab] 50 mg PO Q4HR PRN 11/27/17 11/27/17 11/26/17 Previous Rx's Medication Instructions Recorded Last Taken Type Acetaminophen [Acetaminophen TAB] 650 mg PO Q6H PRN #15 tablet 11/30/17 Unknown Rx Albuterol Sulfate [Proventil Hfa] 2 puff IH Q4H PRN #1 unit 11/30/17 Unknown Rx HYDROcodone/APAP 5-325 [[place] 1 each PO Q4HR PRN #6 tablet 11/30/17 Unknown Rx 5/325] Nicotine [Habitrol] 14 mg TD QDAY #14 patch 11/30/17 Unknown Rx methylPREDNISolone [Medrol Dose 1 dose PO DAILY #1 pack 11/30/17 Unknown Rx Daryn] Ondansetron [Zofran Odt] 4 mg PO Q8HR PRN #14 tab.rapdis 03/05/18 Unknown Rx traMADoL [Ultram 50 MG tab] 50 mg PO Q4HR PRN #14 tablet 03/05/18 Unknown Rx Ibuprofen [Motrin 600 MG tab] 600 mg PO Q6H PRN #24 tablet 10/10/18 Unknown Rx methOCARBAMOL [Robaxin TAB] 500 mg PO BID PRN #14 tab 10/10/18 Unknown Rx predniSONE [Deltasone] 20 mg PO QDAY #3 tab 10/10/18 Unknown Rx amLODIPine 10 mg PO DAILY #60 tab 03/17/19 Unknown Rx Allergies Allergy/AdvReac Type Severity Reaction Status Date / Time aspirin Allergy Nausea Verified 12/13/20 12:33 lisinopril Allergy Angioedema Verified 12/13/20 12:33 lorazepam Allergy Swelling Verified 12/13/20 12:33 dial soap Allergy Hives Uncoded 09/25/14 12:12 ED Review of Systems ROS: Stated complaint: REACTION FROM FLU SHOT Other details as noted in HPI Comment: All other systems reviewed and negative ED Past Medical Hx - Past Medical History Hx Hypertension: Yes Hx Headaches / Migraines: Yes Additional medical history: Endometriosis, lower back pain, cervical cancer, - Surgical History Additional Surgical History: pt Laproscopic surgery for endometriosis, tubal ligation, left ring finger - Social History Smoking Status: Current Every Day Smoker Substance Use Type: Alcohol - Medications Home Medications: Home Medications Medication Instructions Recorded Confirmed Last Taken Type traMADoL [Ultram 50 MG tab] 50 mg PO Q4HR PRN 11/27/17 11/27/17 11/26/17 History Acetaminophen [Acetaminophen TAB] 650 mg PO Q6H PRN #15 tablet 11/30/17 Unknown Rx Albuterol Sulfate [Proventil Hfa] 2 puff IH Q4H PRN #1 unit 11/30/17 Unknown Rx HYDROcodone/APAP 5-325 [[place] 1 each PO Q4HR PRN #6 tablet 11/30/17 Unknown Rx 5/325] Nicotine [Habitrol] 14 mg TD QDAY #14 patch 11/30/17 Unknown Rx methylPREDNISolone [Medrol Dose 1 dose PO DAILY #1 pack 11/30/17 Unknown Rx Daryn] Ondansetron [Zofran Odt] 4 mg PO Q8HR PRN #14 tab.rapdis 03/05/18 Unknown Rx traMADoL [Ultram 50 MG tab] 50 mg PO Q4HR PRN #14 tablet 03/05/18 Unknown Rx Ibuprofen [Motrin 600 MG tab] 600 mg PO Q6H PRN #24 tablet 10/10/18 Unknown Rx methOCARBAMOL [Robaxin TAB] 500 mg PO BID PRN #14 tab 10/10/18 Unknown Rx predniSONE [Deltasone] 20 mg PO QDAY #3 tab 10/10/18 Unknown Rx amLODIPine 10 mg PO DAILY #60 tab 03/17/19 Unknown Rx ED Physical Exam - General Limitations: No Limitations General appearance: alert, in no apparent distress - Head Head exam: Present: atraumatic, normocephalic - Eye Eye exam: Present: normal appearance - ENT ENT exam: Present: mucous membranes moist, normal external ear exam - Expanded ENT Exam Expanded TM/Canal exam: Erythema: Right TM (Blood noted that the tympanic membrane) Mouth exam: Present: normal external inspection Teeth exam: Present: normal inspection - Neck Neck exam: Present: normal inspection - Respiratory Respiratory exam: Present: normal lung sounds bilaterally. Absent: chest wall tenderness, accessory muscle use - Cardiovascular Cardiovascular Exam: Present: regular rate, normal rhythm. Absent: systolic murmur, diastolic murmur, rubs, gallop - Extremities Exam Extremities exam: Present: normal inspection, full ROM - Back Exam Back exam: Present: normal inspection, full ROM - Neurological Exam Neurological exam: Present: alert, oriented X3, normal gait - Psychiatric Psychiatric exam: Present: normal affect, normal mood - Skin Skin exam: Present: warm, dry, intact, normal color. Absent: rash ED Course Vital Signs 12/13/20 12:43 Temperature 98.4 F Pulse Rate 82 Respiratory 16 Rate Blood Pressure 175/105 O2 Sat by Pulse 99 Oximetry ED Medical Decision Making - Radiology Data Radiology results: report reviewed Study Comments [facility] [address] [place] [address] XRay Report Signed Patient: JEANNIE SMITH MR#: [id number] : 1975 Acct:[id number] Age/Sex: 45 / F ADM Date: 12/13/20 Loc: ED Attending Dr: Ordering Physician: ROBERT CLINTON Date of Service: 12/13/20 Procedure(s): XR chest routine 2V Accession Number(s): [id number] cc: ROBERT CLINTON Fluoro Time In Minutes: CHEST 2 VIEWS INDICATION / CLINICAL INFORMATION: Chest tightness. COMPARISON: 03/17/2019 FINDINGS: SUPPORT DEVICES: None. HEART / MEDIASTINUM: No significant abnormality. LUNGS / PLEURA: No significant pulmonary or pleural abnormality. No pneumothorax. ADDITIONAL FINDINGS: No significant additional findings. IMPRESSION: 1. No acute findings. Signer Name: Roosevelt An DO Signed: 12/13/2020 1:02 PM Workstation Name: [id number] Transcribed By: LEONARDO Dictated By: ROOSEVELT AN DO Electronically Authenticated By: ROOSEVELT AN DO Signed Date/Time: 12/13/20 1302 DD/ 1301 TD/TT: - Medical Decision Making 45-year-old -[place] female presents to the emergency room stating she has been having some achiness feeling cold headache that is located in the frontal area and chest tightness with nasal congestion after having her flu vaccination on Friday. Patient reports she has a history of hypertension. She had a stroke in 2008. She states that she is fully vaccinated for Covid and this is the first time getting a flu vaccination. Patient states that she has vomited with head spinning. She last took ibuprofen approximately 630 this morning. She states that she had a fever at work of 101 in the center home. EKG chest x-ray has been ordered Tylenol for pain. Chest x-ray shows no acute abnormalities. EKG is nonactionable. Discussed with patient to increase her fluid. Tylenol or ibuprofen as needed for body aches and pain. Patient is to follow-up with her primary care provider. Vital signs are stable. Continue with all chronic medications for your blood pressure. Critical care attestation.: If time is entered above; I have spent that time in minutes in the direct care of this critically ill patient, excluding procedure time. ED Disposition Clinical Impression: Adverse reaction to influenza vaccine Disposition: HOME / SELF CARE / HOMELESS Is pt being admited?: No Does the pt Need Aspirin: No Condition: Stable Additional Instructions: As we spoke your chest x-ray is negative your exam is nonactionable. Discussed that sometimes the first virus injection he can have some reaction is your body is building up his immunity for when the real virus hits. I would like for you to do supportive care increase your fluid intake Tylenol ibuprofen rest. Follow-up with your primary care provider if you have any further concerns. Referrals: PRIMARY CARE, [Primary Care Provider] - 3-5 Days [facility] [Provider Group] - 3-5 Days Forms: Work/School Release Form(ED) Time of Disposition: 13:40
--- NOTE | 2020-12-13 13:06 | XRay Report ---
CHEST 2 VIEWS INDICATION / CLINICAL INFORMATION: Chest tightness. COMPARISON: 03/17/2019 FINDINGS: SUPPORT DEVICES: None. HEART / MEDIASTINUM: No significant abnormality. LUNGS / PLEURA: No significant pulmonary or pleural abnormality. No pneumothorax. ADDITIONAL FINDINGS: No significant additional findings. IMPRESSION: 1. No acute findings. Signer Name: Roosevelt An DO Signed: 12/13/2020 1:02 PM Workstation Name: [id number]
--- NOTE | 2020-12-13 17:53 | Electrocardiograph Report ---
[facility] Test Date: 2020-12-13 Test Time: 13:14:08 Pat Name: JEANNIE SMITH Department: Room: Gender: F [employer] Teacher: PHIL : 1975 Requested By: TORRES KIMBROUGH Order Number: [id number] Reading MD: Omar Marshall Measurements Intervals [place] Rate: 73 P: 37 ME: 122 QRS: 51 QRSD: 73 T: 50 QT: 425 QTc: 469 Interpretive Statements Sinus rhythm No previous ECG available for comparison Electronically Signed On 12-13-2020 17:52:34 EDT by Omar Marshall
== END 2020-12-13 13:48 | disposition home or self-care (01) ==
LOC: ED 12:16
DX: R51.9 Headache, unspecified (principal); T50.B95A Adverse effect of other viral vaccines, initial encounter; I10 Essential (primary) hypertension; G89.29 Other chronic pain; Z72.89 Other problems related to lifestyle; Z88.8 Allergy status to other drugs, medicaments and biological substances; Z91.09 Other allergy status, other than to drugs and biological substances; Z79.899 Other long term (current) drug therapy; Y92.89 Other specified places as the place of occurrence of the external cause
CPT/HCPCS: 71046; 93005; 99283

== ENCOUNTER 2021-04-24 09:01 | Emergency (ER) | payer OTHER ==
[2021-04-24] MEDS ORDERED: IBUPROFEN 800 MG TAB PO STA (11:00)
[2021-04-24] MEDS ORDERED: ACETAMINOPHEN 325 MG TAB PO ONE (11:00)
--- NOTE | 2021-04-24 11:12 | Emergency Department Report ---
ED General Adult HPI - General Chief complaint: Shoulder Injury Stated complaint: CHRONIC SHOULDER PAIN/NUMBESS Time Seen by Provider: 04/24/21 10:43 Source: patient Mode of arrival: Ambulatory Limitations: No Limitations - History of Present Illness Initial comments: 46-year-old -[place] female patient presents with complaints of left shoulder pain x 4 weeks, worsening over the past couple of days. Patient states the pain occurs with certain movements and with lying down. She denies any chest pain, cough, shortness of breath or radiation of pain into her chest. No injuries to the shoulder or neck per patient. She does report tingling in the hand, however states she has a history of carpal tunnel and tendinitis. OTC medications are not helping per patient. Patient admits to history of hypertension and cervical cancer - Related Data Home Medications Medication Instructions Recorded Confirmed Last Taken traMADoL [Ultram 50 MG tab] 50 mg PO Q4HR PRN 11/27/17 11/27/17 11/26/17 Previous Rx's Medication Instructions Recorded Last Taken Type Acetaminophen [Acetaminophen TAB] 650 mg PO Q6H PRN #15 tablet 11/30/17 Unknown Rx Albuterol Sulfate [Proventil Hfa] 2 puff IH Q4H PRN #1 unit 11/30/17 Unknown Rx HYDROcodone/APAP 5-325 [[place] 1 each PO Q4HR PRN #6 tablet 11/30/17 Unknown Rx 5/325] Nicotine [Habitrol] 14 mg TD QDAY #14 patch 11/30/17 Unknown Rx methylPREDNISolone [Medrol Dose 1 dose PO DAILY #1 pack 11/30/17 Unknown Rx Daryn] Ondansetron [Zofran Odt] 4 mg PO Q8HR PRN #14 tab.rapdis 03/05/18 Unknown Rx traMADoL [Ultram 50 MG tab] 50 mg PO Q4HR PRN #14 tablet 03/05/18 Unknown Rx Ibuprofen [Motrin 600 MG tab] 600 mg PO Q6H PRN #24 tablet 10/10/18 Unknown Rx methOCARBAMOL [Robaxin TAB] 500 mg PO BID PRN #14 tab 10/10/18 Unknown Rx predniSONE [Deltasone] 20 mg PO QDAY #3 tab 10/10/18 Unknown Rx amLODIPine 10 mg PO DAILY #60 tab 03/17/19 Unknown Rx Naproxen [Naprosyn] 500 mg PO BID PRN #20 tab 04/24/21 Unknown Rx methocarbamoL [Methocarbamol] 750 mg PO TID PRN #30 tab 04/24/21 Unknown Rx predniSONE [Deltasone] 20 mg PO BID 3 Days #6 tab 04/24/21 Unknown Rx Allergies Allergy/AdvReac Type Severity Reaction Status Date / Time aspirin Allergy Nausea Verified 12/13/20 12:33 lisinopril Allergy Angioedema Verified 12/13/20 12:33 lorazepam Allergy Swelling Verified 12/13/20 12:33 dial soap Allergy Hives Uncoded 09/25/14 12:12 ED Review of Systems ROS: Stated complaint: CHRONIC SHOULDER PAIN/NUMBESS Other details as noted in HPI Constitutional: denies: chills, fever Respiratory: denies: cough, shortness of breath Cardiovascular: denies: chest pain Musculoskeletal: arthralgia. denies: back pain, joint swelling Neurological: paresthesias. denies: weakness ED Past Medical Hx - Past Medical History Hx Hypertension: Yes Hx Headaches / Migraines: Yes Additional medical history: Endometriosis, lower back pain, cervical cancer, - Surgical History Additional Surgical History: pt Laproscopic surgery for endometriosis, tubal ligation, left ring finger - Social History Smoking Status: Current Every Day Smoker Substance Use Type: Alcohol - Medications Home Medications: Home Medications Medication Instructions Recorded Confirmed Last Taken Type traMADoL [Ultram 50 MG tab] 50 mg PO Q4HR PRN 11/27/17 11/27/17 11/26/17 History Acetaminophen [Acetaminophen TAB] 650 mg PO Q6H PRN #15 tablet 11/30/17 Unknown Rx Albuterol Sulfate [Proventil Hfa] 2 puff IH Q4H PRN #1 unit 11/30/17 Unknown Rx HYDROcodone/APAP 5-325 [[place] 1 each PO Q4HR PRN #6 tablet 11/30/17 Unknown Rx 5/325] Nicotine [Habitrol] 14 mg TD QDAY #14 patch 11/30/17 Unknown Rx methylPREDNISolone [Medrol Dose 1 dose PO DAILY #1 pack 11/30/17 Unknown Rx Daryn] Ondansetron [Zofran Odt] 4 mg PO Q8HR PRN #14 tab.rapdis 03/05/18 Unknown Rx traMADoL [Ultram 50 MG tab] 50 mg PO Q4HR PRN #14 tablet 03/05/18 Unknown Rx Ibuprofen [Motrin 600 MG tab] 600 mg PO Q6H PRN #24 tablet 10/10/18 Unknown Rx methOCARBAMOL [Robaxin TAB] 500 mg PO BID PRN #14 tab 10/10/18 Unknown Rx predniSONE [Deltasone] 20 mg PO QDAY #3 tab 10/10/18 Unknown Rx amLODIPine 10 mg PO DAILY #60 tab 03/17/19 Unknown Rx Naproxen [Naprosyn] 500 mg PO BID PRN #20 tab 04/24/21 Unknown Rx methocarbamoL [Methocarbamol] 750 mg PO TID PRN #30 tab 04/24/21 Unknown Rx predniSONE [Deltasone] 20 mg PO BID 3 Days #6 tab 04/24/21 Unknown Rx ED Physical Exam - General Limitations: No Limitations General appearance: alert, in no apparent distress - Head Head exam: Present: atraumatic, normocephalic - Eye Eye exam: Present: normal appearance. Absent: scleral icterus - Neck Neck exam: Present: tenderness (Tenderness to palpation of the left trapezius muscle without vertebral tenderness to palpation noted), full ROM - Respiratory Respiratory exam: Absent: respiratory distress - Cardiovascular Cardiovascular Exam: Present: regular rate - Expanded Upper Extremity Exam Left Shoulder Exam: Present: full ROM, tenderness. Absent: swelling, abrasion, ecchymosis Upper Arm exam: Present: normal inspection Elbow exam: Present: normal inspection Forearm Wrist exam: Present: normal inspection Hand Wrist exam: Present: normal inspection Vascular: Absent: pulse deficit radial art, pulse deficit ulnar art - Back Exam Back exam: Present: full ROM - Neurological Exam Neurological exam: Present: alert, oriented X3, normal gait - Psychiatric Psychiatric exam: Present: normal affect, normal mood - Skin Skin exam: Present: warm, dry, intact, normal color. Absent: rash ED Course Vital Signs 04/24/21 09:37 Temperature 98.3 F Pulse Rate 78 Respiratory 18 Rate Blood Pressure 139/93 O2 Sat by Pulse 99 Oximetry ED Medical Decision Making - Radiology Data Radiology results: report reviewed Fluoro Time In Minutes: XR shoulder 2+V LT INDICATION / CLINICAL INFORMATION: pain, no injury. COMPARISON: None available. FINDINGS: BONES/JOINT(S): No acute fracture or subluxation. No significant degenerative changes. SOFT TISSUES: No significant abnormality. ADDITIONAL FINDINGS: None. - Medical Decision Making 46-year-old -[place] female patient presents with complaints of left shoulder pain x 4 weeks, worsening over the past couple of days. Patient states the pain occurs with certain movements and with lying down. She denies any chest pain, cough, shortness of breath or radiation of pain into her chest. No injuries to the shoulder or neck per patient. She does report tingling in the hand, however states she has a history of carpal tunnel and tendinitis. OTC medications are not helping per patient. Patient admits to history of hypertension and cervical cancer No acute abnormalities noted on x-ray. Recommend patient follows up with orthopedics for further evaluation. She is otherwise well-appearing, her vitals within normal, she is stable for discharge home. Strict return precautions were discussed in detail with patient verbalizes understanding Critical care attestation.: If time is entered above; I have spent that time in minutes in the direct care of this critically ill patient, excluding procedure time. ED Disposition Clinical Impression: Left shoulder pain Disposition: HOME / SELF CARE / HOMELESS Is pt being admited?: No Condition: Stable Instructions: Rotator Cuff Tendinitis Prescriptions: predniSONE [Deltasone] 20 mg PO BID 3 Days #6 tab methocarbamoL [Methocarbamol] 750 mg PO TID PRN #30 tab PRN Reason: muscle spasm/tightness Naproxen [Naprosyn] 500 mg PO BID PRN #20 tab PRN Reason: pain Referrals: [facility] [Provider Group] - 3-5 Days Forms: Work/School Release Form(ED)
--- NOTE | 2021-04-24 11:28 | XRay Report ---
XR shoulder 2+V LT INDICATION / CLINICAL INFORMATION: pain, no injury. COMPARISON: None available. FINDINGS: BONES/JOINT(S): No acute fracture or subluxation. No significant degenerative changes. SOFT TISSUES: No significant abnormality. ADDITIONAL FINDINGS: None. Signer Name: José Miguel Flores MD Signed: 04/24/2021 11:23 AM Workstation Name: [id number]
[2021-04-24 12:08] VITALS: BP 136/90
== END 2021-04-24 12:10 | disposition home or self-care (01) ==
LOC: ED 09:01
DX: M25.512 Pain in left shoulder (principal); I10 Essential (primary) hypertension; F17.200 Nicotine dependence, unspecified, uncomplicated; F10.20 Alcohol dependence, uncomplicated; Z88.6 Allergy status to analgesic agent; Z88.8 Allergy status to other drugs, medicaments and biological substances
CPT/HCPCS: 99283

== ENCOUNTER 2021-10-06 06:59 | Emergency (ER) | payer SELFPAY ==
[2021-10-06 07:52] VITALS: BP 184/108
--- NOTE | 2021-10-06 09:42 | Emergency Department Report ---
- General Chief complaint: Skin Rash Stated complaint: BREAST RASH Time Seen by Provider: 10/06/21 09:35 Source: patient Mode of arrival: Ambulatory Limitations: No Limitations - History of Present Illness Initial comments: 46-year-old black female with a past medical history of hypertension, cervical cancer, migraine headaches, and endometriosis presents to the emergency departm ent for evaluation of rash to her right breast. She states that 2 days ago she had burning to her right breast area and last night she noticed painful rash to area. MD complaint: rash -: Gradual, days(s) (1) Tetanus Up to Date: unsure Location: chest (Right breast and axillary area) Severity: severe Severity scale (0 -10): 10 Quality: burning, aching Consistency: constant Worsens with: other (Any touch) Associated symptoms: denies other symptoms Treatments Prior to Arrival: none - Related Data Home Medications Medication Instructions Recorded Confirmed Last Taken traMADoL [Ultram 50 MG tab] 50 mg PO Q4HR PRN 11/27/17 11/27/17 11/26/17 Previous Rx's Medication Instructions Recorded Last Taken Type Acetaminophen [Acetaminophen TAB] 650 mg PO Q6H PRN #15 tablet 11/30/17 Unknown Rx Albuterol Sulfate [Proventil Hfa] 2 puff IH Q4H PRN #1 unit 11/30/17 Unknown Rx HYDROcodone/APAP 5-325 [[place] 1 each PO Q4HR PRN #6 tablet 11/30/17 Unknown Rx 5/325] Nicotine [Habitrol] 14 mg TD QDAY #14 patch 11/30/17 Unknown Rx methylPREDNISolone [Medrol Dose 1 dose PO DAILY #1 pack 11/30/17 Unknown Rx Daryn] Ondansetron [Zofran Odt] 4 mg PO Q8HR PRN #14 tab.rapdis 03/05/18 Unknown Rx traMADoL [Ultram 50 MG tab] 50 mg PO Q4HR PRN #14 tablet 03/05/18 Unknown Rx Ibuprofen [Motrin 600 MG tab] 600 mg PO Q6H PRN #24 tablet 10/10/18 Unknown Rx methOCARBAMOL [Robaxin TAB] 500 mg PO BID PRN #14 tab 10/10/18 Unknown Rx predniSONE [Deltasone] 20 mg PO QDAY #3 tab 10/10/18 Unknown Rx amLODIPine 10 mg PO DAILY #60 tab 03/17/19 Unknown Rx Naproxen [Naprosyn] 500 mg PO BID PRN #20 tab 04/24/21 Unknown Rx methocarbamoL [Methocarbamol] 750 mg PO TID PRN #30 tab 04/24/21 Unknown Rx predniSONE [Deltasone] 20 mg PO BID 3 Days #6 tab 04/24/21 Unknown Rx Valacyclovir HCl [Valtrex] 1,000 mg PO Q8H 7 Days #21 tab 10/06/21 Unknown Rx oxyCODONE /ACETAMINOPHEN [Percocet 1 tab PO Q6HR PRN #15 tablet 10/06/21 Unknown Rx 5/325] Allergies Allergy/AdvReac Type Severity Reaction Status Date / Time aspirin Allergy Nausea Verified 12/13/20 12:33 lisinopril Allergy Angioedema Verified 12/13/20 12:33 lorazepam Allergy Swelling Verified 12/13/20 12:33 dial soap Allergy Hives Uncoded 09/25/14 12:12 Abscess Boil HPI - HPI Chief Complaint: Skin Rash Stated Complaint: BREAST RASH Time Seen by Provider: 10/06/21 09:35 Home Medications: Home Medications Medication Instructions Recorded Confirmed Last Taken traMADoL [Ultram 50 MG tab] 50 mg PO Q4HR PRN 11/27/17 11/27/17 11/26/17 Previous Rx's Medication Instructions Recorded Last Taken Type Acetaminophen [Acetaminophen TAB] 650 mg PO Q6H PRN #15 tablet 11/30/17 Unknown Rx Albuterol Sulfate [Proventil Hfa] 2 puff IH Q4H PRN #1 unit 11/30/17 Unknown Rx HYDROcodone/APAP 5-325 [[place] 1 each PO Q4HR PRN #6 tablet 11/30/17 Unknown Rx 5/325] Nicotine [Habitrol] 14 mg TD QDAY #14 patch 11/30/17 Unknown Rx methylPREDNISolone [Medrol Dose 1 dose PO DAILY #1 pack 11/30/17 Unknown Rx Daryn] Ondansetron [Zofran Odt] 4 mg PO Q8HR PRN #14 tab.rapdis 03/05/18 Unknown Rx traMADoL [Ultram 50 MG tab] 50 mg PO Q4HR PRN #14 tablet 03/05/18 Unknown Rx Ibuprofen [Motrin 600 MG tab] 600 mg PO Q6H PRN #24 tablet 10/10/18 Unknown Rx methOCARBAMOL [Robaxin TAB] 500 mg PO BID PRN #14 tab 10/10/18 Unknown Rx predniSONE [Deltasone] 20 mg PO QDAY #3 tab 10/10/18 Unknown Rx amLODIPine 10 mg PO DAILY #60 tab 03/17/19 Unknown Rx Naproxen [Naprosyn] 500 mg PO BID PRN #20 tab 04/24/21 Unknown Rx methocarbamoL [Methocarbamol] 750 mg PO TID PRN #30 tab 04/24/21 Unknown Rx predniSONE [Deltasone] 20 mg PO BID 3 Days #6 tab 04/24/21 Unknown Rx Valacyclovir HCl [Valtrex] 1,000 mg PO Q8H 7 Days #21 tab 10/06/21 Unknown Rx oxyCODONE /ACETAMINOPHEN [Percocet 1 tab PO Q6HR PRN #15 tablet 10/06/21 Unknown Rx 5/325] Allergies/Adverse Reactions: Allergies Allergy/AdvReac Type Severity Reaction Status Date / Time aspirin Allergy Nausea Verified 12/13/20 12:33 lisinopril Allergy Angioedema Verified 12/13/20 12:33 lorazepam Allergy Swelling Verified 12/13/20 12:33 dial soap Allergy Hives Uncoded 09/25/14 12:12 ED Review of Systems ROS: Stated complaint: BREAST RASH Other details as noted in HPI Comment: All other systems reviewed and negative Constitutional: denies: chills, fever Respiratory: denies: shortness of breath Cardiovascular: denies: chest pain, palpitations Gastrointestinal: denies: abdominal pain, nausea, vomiting Skin: rash ED Past Medical Hx - Past Medical History Hx Hypertension: Yes Hx Headaches / Migraines: Yes Additional medical history: Endometriosis, lower back pain, cervical cancer, - Surgical History Additional Surgical History: pt Laproscopic surgery for endometriosis, tubal ligation, left ring finger - Social History Smoking Status: Current Every Day Smoker Substance Use Type: Alcohol - Medications Home Medications: Home Medications Medication Instructions Recorded Confirmed Last Taken Type traMADoL [Ultram 50 MG tab] 50 mg PO Q4HR PRN 11/27/17 11/27/17 11/26/17 History Acetaminophen [Acetaminophen TAB] 650 mg PO Q6H PRN #15 tablet 11/30/17 Unknown Rx Albuterol Sulfate [Proventil Hfa] 2 puff IH Q4H PRN #1 unit 10/14/18 Unknown Rx HYDROcodone/APAP 5-325 [[place] 1 each PO Q4HR PRN #6 tablet 11/30/17 Unknown Rx 5/325] Nicotine [Habitrol] 14 mg TD QDAY #14 patch 11/30/17 Unknown Rx methylPREDNISolone [Medrol Dose 1 dose PO DAILY #1 pack 11/30/17 Unknown Rx Daryn] Ondansetron [Zofran Odt] 4 mg PO Q8HR PRN #14 tab.rapdis 03/05/18 Unknown Rx traMADoL [Ultram 50 MG tab] 50 mg PO Q4HR PRN #14 tablet 03/05/18 Unknown Rx Ibuprofen [Motrin 600 MG tab] 600 mg PO Q6H PRN #24 tablet 10/10/18 Unknown Rx methOCARBAMOL [Robaxin TAB] 500 mg PO BID PRN #14 tab 10/10/18 Unknown Rx predniSONE [Deltasone] 20 mg PO QDAY #3 tab 10/10/18 Unknown Rx amLODIPine 10 mg PO DAILY #60 tab 03/17/19 Unknown Rx Naproxen [Naprosyn] 500 mg PO BID PRN #20 tab 04/24/21 Unknown Rx methocarbamoL [Methocarbamol] 750 mg PO TID PRN #30 tab 04/24/21 Unknown Rx predniSONE [Deltasone] 20 mg PO BID 3 Days #6 tab 04/24/21 Unknown Rx Valacyclovir HCl [Valtrex] 1,000 mg PO Q8H 7 Days #21 tab 10/06/21 Unknown Rx oxyCODONE /ACETAMINOPHEN [Percocet 1 tab PO Q6HR PRN #15 tablet 10/06/21 Unknown Rx 5/325] ED Physical Exam - General Limitations: No Limitations General appearance: alert, in no apparent distress - Head Head exam: Present: atraumatic, normocephalic - Eye Eye exam: Present: normal appearance. Absent: conjunctival injection - ENT ENT exam: Present: normal exam - Neck Neck exam: Present: normal inspection. Absent: lymphadenopathy - Respiratory Respiratory exam: Absent: respiratory distress - Cardiovascular Cardiovascular Exam: Present: regular rate - GI/Abdominal GI/Abdominal exam: Absent: distended - Extremities Exam Extremities exam: Present: normal inspection - Back Exam Back exam: Present: normal inspection - Neurological Exam Neurological exam: Present: alert, oriented X3 - Psychiatric Psychiatric exam: Present: normal affect, normal mood - Skin Skin exam: Present: warm, dry, normal color, rash - Expanded Skin Exam Expanded Distribution of rash: chest (Right breast and axillary areas) Description of rash: Present: tenderness, erythematous, vesicular 1 - Herpetic lesions consistent with shingles noted to area. Erythematous and tender to any touch. ED Course Vital Signs 10/06/21 07:50 Temperature 98.7 F Pulse Rate 75 Respiratory 18 Rate Blood Pressure 184/108 [Left] O2 Sat by Pulse 99 Oximetry ED Medical Decision Making - Medical Decision Making 46-year-old black female with a past medical history of hypertension, cervical cancer, migraine headaches, and endometriosis presents to the emergency departm ent for evaluation of rash to her right breast. She states that 2 days ago she had burning to her right breast area and last night she noticed painful rash to area. Physical exam and symptoms compatible with shingles. Patient will be treated with 7-day course of Valtrex 1000 mg p.o. every 8 hours along with pain medication. She is advised to follow-up with her primary care provider if no improvement or worsening symptoms and return to the emergency department as needed. She verbalizes understanding of and agreement with plan of care. Critical care attestation.: If time is entered above; I have spent that time in minutes in the direct care of this critically ill patient, excluding procedure time. ED Disposition Clinical Impression: Shingles Qualifiers: Herpes zoster complications: without complications Qualified Code(s): B02.9 - Zoster without complications Disposition: 01 HOME / SELF CARE / HOMELESS Is pt being admited?: No Does the pt Need Aspirin: No Condition: Stable Instructions: Shingles, [id number] Additional Instructions: Take medications as prescribed. Follow-up with your primary care provider if no improvement or worsening symptoms. Return to the emergency department as needed. Prescriptions: oxyCODONE /ACETAMINOPHEN [Percocet 5/325] 1 tab PO Q6HR PRN #15 tablet PRN Reason: Pain Valacyclovir HCl [Valtrex] 1,000 mg PO Q8H 7 Days #21 tab Referrals: AUGIE KINCAID MD [Staff Physician] - 3-5 Days Forms: Work/School Release Form(ED) Time of Disposition: 09:44
== END 2021-10-06 09:50 | disposition home or self-care (01) ==
LOC: ED 06:59
DX: B02.9 Zoster without complications (principal); I10 Essential (primary) hypertension; G43.909 Migraine, unspecified, not intractable, without status migrainosus; Z88.6 Allergy status to analgesic agent; Z88.8 Allergy status to other drugs, medicaments and biological substances; Z91.09 Other allergy status, other than to drugs and biological substances; Z79.899 Other long term (current) drug therapy
CPT/HCPCS: 99282

== ENCOUNTER 2021-10-16 08:11 | Emergency (ER) | payer SELFPAY ==
[2021-10-16 08:47] VITALS: BP 143/111
--- NOTE | 2021-10-16 10:16 | Emergency Department Report ---
ED General Adult HPI - General Chief complaint: Skin Rash Stated complaint: SHINGLES LOCATED IN EYE Time Seen by Provider: 10/16/21 09:58 Source: patient Mode of arrival: Ambulatory Limitations: No Limitations - History of Present Illness Initial comments: 46-year-old black female with a past medical history of hypertension, cervical cancer, migraine headaches, and endometriosis presents to the emergency department for evaluation bilateral eye itching and burning with crushing noted in her eye about 2 days ago. Patient was informed from a urgent care that she needs to come to ER for further evaultion. Patient also report she was recently treated for shinlges to her right breast area. Severity scale (0 -10): 0 - Related Data Home Medications Medication Instructions Recorded Confirmed Last Taken traMADoL [Ultram 50 MG tab] 50 mg PO Q4HR PRN 11/27/17 11/27/17 11/26/17 Previous Rx's Medication Instructions Recorded Last Taken Type Acetaminophen [Acetaminophen TAB] 650 mg PO Q6H PRN #15 tablet 11/30/17 Unknown Rx Albuterol Sulfate [Proventil Hfa] 2 puff IH Q4H PRN #1 unit 11/30/17 Unknown Rx HYDROcodone/APAP 5-325 [[place] 1 each PO Q4HR PRN #6 tablet 11/30/17 Unknown Rx 5/325] Nicotine [Habitrol] 14 mg TD QDAY #14 patch 11/30/17 Unknown Rx methylPREDNISolone [Medrol Dose 1 dose PO DAILY #1 pack 11/30/17 Unknown Rx Daryn] Ondansetron [Zofran Odt] 4 mg PO Q8HR PRN #14 tab.rapdis 03/05/18 Unknown Rx traMADoL [Ultram 50 MG tab] 50 mg PO Q4HR PRN #14 tablet 03/05/18 Unknown Rx Ibuprofen [Motrin 600 MG tab] 600 mg PO Q6H PRN #24 tablet 10/10/18 Unknown Rx methOCARBAMOL [Robaxin TAB] 500 mg PO BID PRN #14 tab 10/10/18 Unknown Rx predniSONE [Deltasone] 20 mg PO QDAY #3 tab 10/10/18 Unknown Rx amLODIPine 10 mg PO DAILY #60 tab 03/17/19 Unknown Rx Naproxen [Naprosyn] 500 mg PO BID PRN #20 tab 04/24/21 Unknown Rx methocarbamoL [Methocarbamol] 750 mg PO TID PRN #30 tab 04/24/21 Unknown Rx predniSONE [Deltasone] 20 mg PO BID 3 Days #6 tab 04/24/21 Unknown Rx Valacyclovir HCl [Valtrex] 1,000 mg PO Q8H 7 Days #21 tab 10/06/21 Unknown Rx oxyCODONE /ACETAMINOPHEN [Percocet 1 tab PO Q6HR PRN #15 tablet 10/06/21 Unknown Rx 5/325] Acetaminophen/Codeine [Tylenol 1 tab PO Q6H PRN 2 Days #8 tab 10/16/21 Unknown Rx /Codeine # 3 tab] Erythromycin [Erythromycin Ophth 1 applic OU Q6HR 7 Days #1 tube 10/16/21 Unknown Rx Oint] Allergies Allergy/AdvReac Type Severity Reaction Status Date / Time aspirin Allergy Nausea Verified 10/16/21 08:48 lisinopril Allergy Angioedema Verified 10/16/21 08:48 lorazepam Allergy Swelling Verified 10/16/21 08:48 dial soap Allergy Hives Uncoded 10/16/21 08:48 ED Review of Systems ROS: Stated complaint: SHINGLES LOCATED IN EYE Other details as noted in HPI Comment: All other systems reviewed and negative Eyes: eye pain, vision change (blurred vision ) ED Past Medical Hx - Past Medical History Hx Hypertension: Yes Hx Headaches / Migraines: Yes Additional medical history: Endometriosis, lower back pain, cervical cancer, - Surgical History Additional Surgical History: pt Laproscopic surgery for endometriosis, tubal ligation, left ring finger - Social History Smoking Status: Current Every Day Smoker Substance Use Type: Alcohol - Medications Home Medications: Home Medications Medication Instructions Recorded Confirmed Last Taken Type traMADoL [Ultram 50 MG tab] 50 mg PO Q4HR PRN 11/27/17 11/27/17 11/26/17 History Acetaminophen [Acetaminophen TAB] 650 mg PO Q6H PRN #15 tablet 11/30/17 Unknown Rx Albuterol Sulfate [Proventil Hfa] 2 puff IH Q4H PRN #1 unit 11/30/17 Unknown Rx HYDROcodone/APAP 5-325 [[place] 1 each PO Q4HR PRN #6 tablet 11/30/17 Unknown Rx 5/325] Nicotine [Habitrol] 14 mg TD QDAY #14 patch 11/30/17 Unknown Rx methylPREDNISolone [Medrol Dose 1 dose PO DAILY #1 pack 11/30/17 Unknown Rx Daryn] Ondansetron [Zofran Odt] 4 mg PO Q8HR PRN #14 tab.rapdis 03/05/18 Unknown Rx traMADoL [Ultram 50 MG tab] 50 mg PO Q4HR PRN #14 tablet 03/05/18 Unknown Rx Ibuprofen [Motrin 600 MG tab] 600 mg PO Q6H PRN #24 tablet 10/10/18 Unknown Rx methOCARBAMOL [Robaxin TAB] 500 mg PO BID PRN #14 tab 10/10/18 Unknown Rx predniSONE [Deltasone] 20 mg PO QDAY #3 tab 10/10/18 Unknown Rx amLODIPine 10 mg PO DAILY #60 tab 03/17/19 Unknown Rx Naproxen [Naprosyn] 500 mg PO BID PRN #20 tab 04/24/21 Unknown Rx methocarbamoL [Methocarbamol] 750 mg PO TID PRN #30 tab 04/24/21 Unknown Rx predniSONE [Deltasone] 20 mg PO BID 3 Days #6 tab 04/24/21 Unknown Rx Valacyclovir HCl [Valtrex] 1,000 mg PO Q8H 7 Days #21 tab 10/06/21 Unknown Rx oxyCODONE /ACETAMINOPHEN [Percocet 1 tab PO Q6HR PRN #15 tablet 10/06/21 Unknown Rx 5/325] Acetaminophen/Codeine [Tylenol 1 tab PO Q6H PRN 2 Days #8 tab 10/16/21 Unknown Rx /Codeine # 3 tab] Erythromycin [Erythromycin Ophth 1 applic OU Q6HR 7 Days #1 tube 10/16/21 Unknown Rx Oint] ED Physical Exam - General Limitations: No Limitations General appearance: alert, in no apparent distress - Head Head exam: Present: atraumatic, normocephalic - Eye Eye exam: Present: normal appearance, PERRL, EOMI, other (no rash is present near eyes. No conjunctive redness noted. no swelling noted. No drainage noted but reported. ). Absent: conjunctival injection, periorbital swelling, periorbital tenderness Pupils: Present: normal accommodation - ENT ENT exam: Present: mucous membranes moist - Neck Neck exam: Present: normal inspection - Respiratory Respiratory exam: Present: normal lung sounds bilaterally. Absent: respiratory distress - Cardiovascular Cardiovascular Exam: Present: regular rate, normal rhythm. Absent: systolic murmur, diastolic murmur, rubs, gallop - GI/Abdominal GI/Abdominal exam: Present: soft, normal bowel sounds - Extremities Exam Extremities exam: Present: normal inspection - Back Exam Back exam: Present: normal inspection - Neurological Exam Neurological exam: Present: alert, oriented X3 - Psychiatric Psychiatric exam: Present: normal affect, normal mood - Skin Skin exam: Present: warm, dry, intact, normal color. Absent: rash ED Course Vital Signs 10/16/21 08:40 Temperature 98.1 F Pulse Rate 82 Respiratory 16 Rate Blood Pressure 143/111 [Right] O2 Sat by Pulse 98 Oximetry ED Medical Decision Making - Medical Decision Making no clinical indication of shingles to the face noted. based on what patient is reported. patient is having viral vs bacteria conjunctivitis. no FB sensation reported. blurred vision reported but patient report blurred with no glasses on. vision is better with her glasses on. Patient treated for conjuncntivitis and informed to follow up with her eye provider for further management and if symptoms get worst to report back to ER. patient agrees with plan of care. Vital Signs 10/16/21 08:40 Temperature 98.1 F Pulse Rate 82 Respiratory 16 Rate Blood Pressure 143/111 [Right] O2 Sat by Pulse 98 Oximetry Critical care attestation.: If time is entered above; I have spent that time in minutes in the direct care of this critically ill patient, excluding procedure time. ED Disposition Clinical Impression: Bacterial conjunctivitis, Breast pain, right Disposition: 01 HOME / SELF CARE / HOMELESS Is pt being admited?: No Condition: Stable Instructions: Nonspecific Chest Pain, Adult, Bacterial Conjunctivitis, Adult Prescriptions: Erythromycin [Erythromycin Ophth Oint] 1 applic OU Q6HR 7 Days #1 tube Acetaminophen/Codeine [Tylenol /Codeine # 3 tab] 1 tab PO Q6H PRN 2 Days #8 tab PRN Reason: Pain , Severe (7-10) Referrals: AUGIE KICNAID MD [Primary Care Provider] - 3-5 Days Forms: Work/School Release Form(ED)
== END 2021-10-16 13:07 | disposition home or self-care (01) ==
LOC: ED 08:11
DX: H10.9 Unspecified conjunctivitis (principal); B96.89 Other specified bacterial agents as the cause of diseases classified elsewhere; N64.4 Mastodynia; I10 Essential (primary) hypertension; G43.909 Migraine, unspecified, not intractable, without status migrainosus; F17.200 Nicotine dependence, unspecified, uncomplicated; Z72.89 Other problems related to lifestyle; Z79.899 Other long term (current) drug therapy; Z88.8 Allergy status to other drugs, medicaments and biological substances; Z88.6 Allergy status to analgesic agent; Z91.09 Other allergy status, other than to drugs and biological substances
CPT/HCPCS: 99282